=== PATIENT | female | born 1980 | race Caucasian/White ===

== ENCOUNTER 2018-01-11 14:06 | Emergency (ER) | payer OTHER ==
[2018-01-11] MEDS ORDERED: ALBUTEROL 2.5 MG/3 ML NEB SOL ONE (14:42)
[2018-01-11] MEDS ORDERED: IPRATROPIUM BROM 0.5MG/2.5ML ONE (14:42)
--- NOTE | 2018-01-11 17:03 | EDPHYS ---
Physician Documentation [facility] Unit Name: Corinna Rosario Age: 37 yrs Sex: Female : 1980 Arrival Date: 01/11/2018 Time: 14:13 Bed 13 Private MD: ED Physician Wilfrido Gates HPI: 01/11 14:32 This 37 yrs old Female presents to ER via Ambulatory with complaints of Chest kb Congestion. 14:32 The patient or guardian reports cough, that is intermittent, described as moderate, kb with no sputum. Onset: The symptoms/episode began/occurred 1 week(s) ago. Severity of symptoms: At their worst the symptoms were moderate, in the emergency department the symptoms are unchanged. Modifying factors: The symptoms are alleviated by nothing, the symptoms are aggravated by nothing. Associated signs and symptoms: The patient has no apparent associated signs or symptoms. The patient has experienced similar episodes in the past. The patient has not recently seen a physician. pt states "I have bad allergies and have been coughing for a week. At work today they sent me to medical and they told me I was wheezing really bad and needed to see a doctor." . 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 - Social history:: Smoking status: Patient/guardian denies using tobacco. ROS: 14:32 Constitutional: Negative for fever, chills, and weight loss, ENT: Negative for injury, kb pain, and discharge, Neck: Negative for injury, pain, and swelling, Cardiovascular: Negative for chest pain, palpitations, and edema, Abdomen/GI: Negative for abdominal pain, nausea, vomiting, diarrhea, and constipation, Back: Negative for injury and pain, : Negative for injury, bleeding, discharge, and swelling, MS/Extremity: Negative for injury and deformity, Skin: Negative for injury, rash, and discoloration, Neuro: Negative for headache, weakness, numbness, tingling, and seizure. 14:32 Respiratory: Positive for cough, with no reported sputum, Negative for dyspnea on exertion, hemoptysis, orthopnea, pleurisy, shortness of breath, sputum production, wheezing. Exam: 14:32 Constitutional: This is a well developed, well nourished patient who is awake, alert, kb and in no acute distress. Head/Face: Normocephalic, atraumatic. ENT: Nares patent. No nasal discharge, no septal abnormalities noted. Tympanic membranes are normal and external auditory canals are clear. Oropharynx with no redness, swelling, or masses, exudates, or evidence of obstruction, uvula midline. Mucous membranes moist. Neck: Trachea midline, no thyromegaly or masses palpated, and no cervical lymphadenopathy. Supple, full range of motion without nuchal rigidity, or vertebral point tenderness. No Meningismus. Chest/axilla: Normal chest wall appearance and motion. Nontender with no deformity. No lesions are appreciated. Cardiovascular: Regular rate and rhythm with a normal S1 and S2. No gallops, murmurs, or rubs. Normal PMI, no JVD. No pulse deficits. Respiratory: Lungs have equal breath sounds bilaterally, clear to auscultation and percussion. No rales, rhonchi or wheezes noted. No increased work of breathing, no retractions or nasal flaring. Abdomen/GI: Soft, non-tender, with normal bowel sounds. No distension or tympany. No guarding or rebound. No evidence of tenderness throughout. Skin: Warm, dry with normal turgor. Normal color with no rashes, no lesions, and no evidence of cellulitis. MS/ Extremity: Pulses equal, no cyanosis. Neurovascular intact. Full, normal range of motion. Neuro: Awake and alert, GCS 15, oriented to person, place, time, and situation. Cranial nerves II-XII grossly intact. Motor strength 5/5 in all extremities. Sensory grossly intact. Cerebellar exam normal. Normal gait. Vital Signs: 14:16 BP 98 / 72; Pulse 76; Resp 19; Temp 97.5(TE); Pulse Ox 96% on R/A; Weight 61.23 kg; la1 Height 5 ft. 0 in. (152.40 cm); 15:15 BP 108 / 61; Pulse 77; Resp 18; Pulse Ox 100% on R/A; rb1 16:14 BP 99 / 66; Pulse 75; Resp 19; Pulse Ox 99% on R/A; rb1 17:00 BP 106 / 67; Pulse 71; Resp 18; Pulse Ox 99% on R/A; rb1 14:16 Body Mass Index 26.37 (61.23 kg, 152.40 cm) la1 MDM: 14:18 Patient medically screened. kb 14:32 Data reviewed: vital signs, nurses notes. Data interpreted: Pulse oximetry: on room air kb is 96 %. Interpretation: normal. 16:28 Counseling: I had a detailed discussion with the patient and/or guardian regarding: the kb historical points, exam findings, and any diagnostic results supporting the discharge/admit diagnosis, radiology results, the need for outpatient follow up, a family practitioner, to return to the emergency department if symptoms worsen or persist or if there are any questions or concerns that arise at home. 01/11 14:22 Order name: Chest Pa And Lat (2 Views) XRAY kb Administered Medications: 14:45 Drug: DuoNeb (3:1) (2.5 mg - 0.5 mg) 3 ml Route: Nebulizer; rb1 15:09 Follow up: Response: No adverse reaction; Marked relief of symptoms rb1 15:12 Follow up: Response: No adverse reaction; Marked relief of symptoms rb1 Disposition: 18:55 Co-signature as Attending Physician, Wilfrido Gates MD. Disposition: 01/11/18 17:03 Discharged to Home. Impression: Bronchitis, not specified as acute or chronic. - Condition is Stable. - Discharge Instructions: Acute Bronchitis, [id number]. - Prescriptions for Albuterol Sulfate 90 mcg/actuation - inhale 1-2 puff by INHALATION route every 4-6 hours; 1 Inhaler. - Medication Reconciliation Form, Thank You Letter, Antibiotic Education, Prescription Opioid Use form. - Follow up: Emergency Department; When: As needed; Reason: Worsening of condition. Follow up: Private Physician; When: 2 - 3 days; Reason: Recheck today's complaints, Continuance of care, Re-evaluation by your physician. Signatures: Dispatcher [employer] Mindy Youngblood, NANCY ORDAZ-Marcos Real RN RN la1 Marisol Harry RN RN rb1 Wilfrido Gates MD MD gs Corrections: (The following items were deleted from the chart) 17:11 17:03 01/11/2018 17:03 Discharged to Home. Impression: Bronchitis, not specified as rb1 acute or chronic. Condition is Stable. Discharge Instructions: Acute Bronchitis, [id number]-Dfhg. Prescriptions for Albuterol Sulfate 90 mcg/actuation - inhale 1-2 puff by INHALATION route every 4-6 hours; 1 Inhaler. and Forms are Medication Reconciliation Form, Thank You Letter, Antibiotic Education, Prescription Opioid Use. Follow up: Emergency Department; When: As needed; Reason: Worsening of condition. Follow up: Private Physician; When: 2 - 3 days; Reason: Recheck today's complaints, Continuance of care, Re-evaluation by your physician. kb
--- NOTE | 2018-01-11 17:03 | ER ---
Nurse's Notes [facility] Name: Corinna Rosario Age: 37 yrs Sex: Female : 1980 Arrival Date: 01/11/2018 Time: 14:13 Bed 13 Private MD: Diagnosis: Bronchitis, not specified as acute or chronic Presentation: 01/11 14:15 Presenting complaint: Patient states: cough for one week, seen by on-site work medic la1 and told I was wheezing. Transition of care: patient was not received from another setting of care. Onset of symptoms was January 11, 2018. Initial Sepsis Screen: Does the patient meet any 2 criteria? No. Patient's initial sepsis screen is negative. Does the patient have a suspected source of infection? No. Patient's initial sepsis screen is negative. Care prior to arrival: None. 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 - Social history:: Smoking status: Patient/guardian denies using tobacco. Screenin:20 Abuse screen: Denies threats or abuse. Nutritional screening: No deficits noted. rb1 Tuberculosis screening: No symptoms or risk factors identified. Fall Risk None identified. Assessment: 14:20 General: Appears in no apparent distress. comfortable, Behavior is calm, cooperative, rb1 Denies fever. Neuro: Level of Consciousness is awake, alert, obeys commands, Oriented to person, place, time, situation. Cardiovascular: Capillary refill < 3 seconds is brisk in bilateral fingers. Respiratory: Reports cough that is non-productive, Airway is patent Respiratory effort is even, unlabored, Respiratory pattern is regular, symmetrical. GI: No signs and/or symptoms were reported involving the gastrointestinal system. : No signs and/or symptoms were reported regarding the genitourinary system. Derm: Skin is pink, warm \T\ dry. Musculoskeletal: Range of motion: intact in all extremities. 14:20 Pain: Denies pain. rb1 15:22 Reassessment: Patient appears in no apparent distress at this time. Patient states rb1 symptoms have improved. 16:20 Reassessment: Patient appears in no apparent distress at this time. Patient and/or rb1 family updated on plan of care and expected duration. Pain level reassessed. Patient is alert, oriented x 3, equal unlabored respirations, skin warm/dry/pink. Vital Signs: 14:16 BP 98 / 72; Pulse 76; Resp 19; Temp 97.5(TE); Pulse Ox 96% on R/A; Weight 61.23 kg; la1 Height 5 ft. 0 in. (152.40 cm); 15:15 BP 108 / 61; Pulse 77; Resp 18; Pulse Ox 100% on R/A; rb1 16:14 BP 99 / 66; Pulse 75; Resp 19; Pulse Ox 99% on R/A; rb1 17:00 BP 106 / 67; Pulse 71; Resp 18; Pulse Ox 99% on R/A; rb1 14:16 Body Mass Index 26.37 (61.23 kg, 152.40 cm) la1 ED Course: 14:13 Patient arrived in ED. sb2 14:15 Triage completed. la1 14:16 [facility]C [facility] kb 14:16 Wilfrido aGtes MD is Attending Physician. kb 14:16 Arm band placed on left wrist. la1 14:20 Patient has correct armband on for positive identification. Bed in low position. Call rb1 light in reach. Side rails up X 1. Pulse ox on. NIBP on. 14:21 Marisol Harry, RN is Primary Nurse. rb1 16:09 X-ray completed. Patient tolerated procedure well. bb2 16:10 Chest Pa And Lat (2 Views) XRAY In Process Unspecified. EDMS 17:11 No provider procedures requiring assistance completed. Patient did not have IV access rb1 during this emergency room visit. Administered Medications: 14:45 Drug: DuoNeb (3:1) (2.5 mg - 0.5 mg) 3 ml Route: Nebulizer; rb1 15:09 Follow up: Response: No adverse reaction; Marked relief of symptoms rb1 15:12 Follow up: Response: No adverse reaction; Marked relief of symptoms rb1 Outcome: 17:03 Discharge ordered by . kb 17:11 Patient left the ED. rb1 17:11 Discharged to home ambulatory. rb1 17:11 Condition: stable 17:11 Discharge instructions given to patient, Instructed on discharge instructions, follow up and referral plans. medication usage, Demonstrated understanding of instructions, follow-up care, medications, Prescriptions given X 1. Signatures: Dispatcher [employer] EDMindy Patricio, INTERLOCKING TOWER OPERATOR-C INTERLOCKING TOWER OPERATOR-Marcos Real RN RN la1 Marisol Harry RN RN rb1 Soumya Astudillo2 Sonam Phan2
[2018-01-11 17:20] VITALS: TEMP 97.5
[2018-01-11 17:22] VITALS: O2SAT 99
[2018-01-11 17:23] VITALS: BP 106/67
--- NOTE | 2018-01-11 18:30 | RAD REPORT ---
EXAM DESCRIPTION: RAD - Chest Pa And Lat (2 Views) - 01/11/2018 4:11 pm CLINICAL HISTORY: Persistent cough and congestion COMPARISON: None. TECHNIQUE: PA and lateral views of the chest were obtained. FINDINGS: The lungs are clear. Heart size is normal and central vasculature is within normal limit s. No pleural effusion or pneumothorax seen. No acute bony finding noted. No aortic abnormality. IMPRESSION: No acute cardiopulmonary process.
== END 2018-01-11 17:11 | disposition home or self-care (01) ==
LOC: ER 14:06
DX: J40 Bronchitis, not specified as acute or chronic (principal)
CPT/HCPCS: 71046; 94640; 99284

== ENCOUNTER 2018-06-14 02:17 | Emergency (ER) | payer OTHER, SELFPAY ==
--- OUTSIDE RECORDS SUMMARY | 2018-06-14 02:20 | XMS REPORT | Clinical Summary ---
:1980 Author Organization [facility] Address [address] [place] [address] Phone Care Team Providers Name Role Phone Unavailable Primary Care Provider Unavailable Allergies No Known Allergies Current Medications Prescription Sig. Disp. Refills Start Date End Date Status loratadine (CLARITIN) Take 10 mg by Active 10 mg tablet mouth daily. acetaminophen-codeine Take 1 tablet by 30 tablet 0 06/13/2018 06/23/2018 Active (TYLENOL #3) 300-30 mouth every 6 mg per tablet (six) hours as needed for up to 10 days. Max Daily Amount: 4 tablets docusate sodium Take 1 capsule 20 capsule 0 06/13/2018 06/23/2018 Active (COLACE) 100 MG (100 mg total) capsule by mouth 2 (two) times daily for 10 days. ibuprofen Take 1 tablet 40 tablet 0 06/13/2018 06/23/2018 Active (ADVIL,MOTRIN) 600 MG (600 mg total) tablet by mouth every 6 (six) hours for 10 days. Active Problems Problem Noted Date Cancer of exocervix (HCC) 2018 Encounters Date Type Specialty Care Team Description 2018 - Hospital Encounter General Internal Kyle Vanegas 06/13/2018 Medicine MD Tony 2018 Procedure Pass 2018 Surgery Kyle Vanegas SALPINGECTOMY MD Tony 06/09/2018 Anesthesia Event Han Norton MD 05/29/2018 Hospital Encounter Pre-Admission Kyle Vanegas Testing MD Tony after 06/13/2017 Social History Tobacco Use Types Packs/Day Years Used Date Never Smoker Smokeless Tobacco: Never Used Alcohol Use Drinks/Week oz/Week Comments No Sex Assigned at Date Recorded Not on file Last Filed Vital Signs Vital Sign Reading Time Taken Blood Pressure 98/57 06/13/2018 8:01 AM CDT Pulse 78 06/13/2018 8:01 AM CDT Temperature 36.7 C (98.1 F) 06/13/2018 8:01 AM CDT Respiratory Rate 16 06/13/2018 8:01 AM CDT Oxygen Saturation 97% 06/13/2018 8:01 AM CDT Inhaled Oxygen Concentration - - Weight 69 kg (152 lb 3.2 oz) 2018 5:52 AM CDT Height 152.4 cm (5') 2018 5:52 AM CDT Body Mass Index 29.72 2018 5:52 AM CDT Plan of Treatment Not on file Implants Implanted Type Area Urologist Device Expiration Model / Identifier Date Serial / Lot Memb Seprafilm Mariana Goodrich 5x6 4301-02 - Sn/A Cement/F Abdomen GENZYME ZIGGY : 02/23/2020 4301-02 / Implanted: Qty: 1 on 2018 by Kyle Vanegas MD iller/Ad BIO-SURG N/A / hesive [id number] Flseal Vhsd Full Strlprep 10ml [id number] - Sn/A Cement/F Abdomen LEMONS: BIOSCI 11/03/2019 [id number] / Implanted: Qty: 1 on 2018 by Kyle Vanegas MD iller/Ad N/A / hesive [id number] Memb Seprafilm Mariana Goodrich 5x6 4301-02 - Sn/A Cement/F Abdomen GENZYME ZIGGY : 01/24/2020 4301-02 / Implanted: Qty: 1 on 2018 by Kyle Vanegas MD iller/Ad BIO-SURG N/A / hesive [id number] Procedures Procedure Name Priority Date/Time Associated Diagnosis Comments DISSECTION,LYMPH NODE 2018 7:30 AM Cancer of exocervix PELVIC CDT (HCC) Case Notes 4 HRS PER KENIA AND BRYANNA SALPINGECTOMY 2018 7:30 AM CDT Cancer of exocervix (HCC) Case Notes 4 HRS PER KENIA AND BRYANNA after 06/13/2017 Results CBC with platelet count + automated diff (06/12/2018 6:58 AM)Only the most recent of3 resultswithin the time period is included. Component Value Ref Range WBC 8.8 3.5 - 10.5 K/L RBC 3.61 (L) 3.93 - 5.22 M/L Hemoglobin 10.3 (L) 11.2 - 15.7 GM/DL Hematocrit 30.8 (L) 34.1 - 44.9 % MCV 85.3 79.4 - 94.8 fL MCH 28.5 25.6 - 32.2 pg MCHC 33.4 32.2 - 35.5 GM/DL RDW 14.5 (H) 11.7 - 14.4 % Platelets 212 150 - 450 K/CU MM MPV 10.2 9.4 - 12.3 fL nRBC 0 0 - 0 /100 WBC % Neutros 75 % % Lymphs 15 % % Monos 9 % % Eos 1 % % Baso 1 % # Neutros 6.60 (H) 1.56 - 6.13 K/L # Lymphs 1.30 1.18 - 3.74 K/L # Monos 0.76 (H) 0.24 - 0.36 K/L # Eos 0.11 0.04 - 0.36 K/L # Baso 0.04 0.01 - 0.08 K/L Immature Granulocytes-Relative 0 0 - 1 % Specimen Performing Laboratory Blood - Arm, [address] [address] CBC with platelet count + automated diff (06/12/2018 6:58 AM)Only the most recent of3 resultswithin the time period is included. Specimen Performing Laboratory Blood Narrative The following orders were created for panel order CBC with platelet count + automated diff. Procedure Abnormality Status --------- ------ CBC with platelet count ...[[id number]]AbnormalFinal result Please view results for these tests on the individual orders. Basic Metabolic Panel (06/11/2018 4:23 AM)Only the most recent of2 resultswithin the time period is included. Component Value Ref Range Sodium 134 (L) 136 - 145 meq/L Potassium 4.3 3.5 - 5.1 meq/L Chloride 103 98 - 107 meq/L CO2 24 22 - 29 meq/L BUN 10 7 - 21 mg/dL Creatinine 0.73 0.57 - 1.25 mg/dL Glucose 127 (H) 70 - 105 mg/dL Calcium 8.3 (L) 8.4 - 10.2 mg/dL EGFR 90Comment: ESTIMATED GFR IS NOT ACCURATE mL/min/1.73 sq m CREATININE CLEARANCE IN PREDICTING GLOMERULAR FILTRATION RATE. ESTIMATED GFR IS NOT APPLICABLE FOR DIALYSIS PATIENTS. Specimen Performing Laboratory Blood - Arm, Right [address] [address] POCT , urine (2018 6:43 AM) Component Value Ref Range Test Urine, POC Negative Control line present?, POC Yes Background clear?, POC Yes UPT Cassette Lot #, POC [id number] UPT Cassette Expiration Date, POC 12/24/2019 TRANSFUSION SERVICE REPORT - SCAN (05/30/2018 6:03 PM) Screen, urine ( 05/29/2018 12:47 PM) Component Value Ref Range Preg Test, Ur Negative Specimen Performing Laboratory Urine [address] [address] Type and screen, automated (05/29/2018 12:46 PM) Component Value Ref Range ABO/RH AUTOMATED (BEAKER) O POSITIVE Ab Scrn NEGATIVE Specimen Performing Laboratory Blood [address] [address] after 06/13/2017
--- OUTSIDE RECORDS SUMMARY | 2018-06-14 02:20 | XMS REPORT ---
:1980 Author Organization [facility] Address [address] [place] [address] [address] [place] [address] Care Team Providers Name Role Phone JODI ANAYA Unavailable Unavailable Problems This patient has no known problems. Allergies, Adverse Reactions, Alerts This patient has no known allergies or adverse reactions. Medications This patient has no known medications. Results Test Description Test Time Test Comments Text Results Atomic Results Result Comments CBC W/PLT COUNT & AUTO DIFFERENTIAL 2018-06-12 07:09:00 Test Item Value Reference Range Comments WHITE BLOOD CELL COUNT (BEAKER) (test pxtf=560) 8.8 K/ L 3.5-10.5 RED BLOOD CELL COUNT (BEAKER) (test xhql=951) 3.61 M/ L 3.93-5.22 HEMOGLOBIN (BEAKER) (test bqzr=157) 10.3 GM/DL 11.2-15.7 HEMATOCRIT (BEAKER) (test juqm=878) 30.8 % 34.1-44.9 MEAN CORPUSCULAR VOLUME (BEAKER) (test tyon=544) 85.3 fL 79.4-94.8 MEAN CORPUSCULAR HEMOGLOBIN (BEAKER) (test nffm=322) 28.5 pg 25.6-32.2 MEAN CORPUSCULAR HEMOGLOBIN CONC (BEAKER) (test hpvh=386) 33.4 GM/DL 32.2- 35.5 RED CELL DISTRIBUTION WIDTH (BEAKER) (test hbzc=325) 14.5 % 11.7-14.4 PLATELET COUNT (BEAKER) (test pqyd=769) 212 K/CU MM 150-450 MEAN PLATELET VOLUME (BEAKER) (test qdnf=050) 10.2 fL 9.4-12.3 NUCLEATED RED BLOOD CELLS (BEAKER) (test ixps=098) 0 /100 WBC 0-0 NEUTROPHILS RELATIVE PERCENT (BEAKER) (test uiuu=939) 75 % LYMPHOCYTES RELATIVE PERCENT (BEAKER) (test jqqe=779) 15 % MONOCYTES RELATIVE PERCENT (BEAKER) (test zkbh=741) 9 % EOSINOPHILS RELATIVE PERCENT (BEAKER) (test wqht=815) 1 % BASOPHILS RELATIVE PERCENT (BEAKER) (test lchm=388) 1 % NEUTROPHILS ABSOLUTE COUNT (BEAKER) (test dsjh=820) 6.60 K/ L 1.56-6.13 LYMPHOCYTES ABSOLUTE COUNT (BEAKER) (test xmmr=130) 1.30 K/ L 1.18-3.74 MONOCYTES ABSOLUTE COUNT (BEAKER) (test lllf=555) 0.76 K/ L 0.24-0.36 EOSINOPHILS ABSOLUTE COUNT (BEAKER) (test jcns=095) 0.11 K/ L 0.04-0.36 BASOPHILS ABSOLUTE COUNT (BEAKER) (test bsfm=020) 0.04 K/ L 0.01-0.08 IMMATURE GRANULOCYTES-RELATIVE PERCENT (BEAKER) (test 0 % 0-1 pokj=1177) BASIC METABOLIC [id number] 05:09:00 Test Item Value Reference Range Comments SODIUM (BEAKER) (test 134 meq/L 136-145 tzso=064) POTASSIUM (BEAKER) (test 4.3 meq/L 3.5-5.1 fjqp=828) CHLORIDE (BEAKER) (test 103 meq/L 98-107 cxic=758) CO2 (BEAKER) (test 24 meq/L 22-29 ianr=527) BLOOD UREA NITROGEN 10 mg/dL 7-21 (BEAKER) (test hiqy=221) CREATININE (BEAKER) (test 0.73 mg/dL 0.57-1.25 pele=948) GLUCOSE RANDOM (BEAKER) 127 mg/dL 70-105 (test zxta=176) CALCIUM (BEAKER) (test 8.3 mg/dL 8.4-10.2 krql=330) EGFR (BEAKER) (test 90 mL/min/1.73 sq m ESTIMATED GFR IS NOT sptc=9909) ACCURATE CREATININE CLEARANCE IN PREDICTING GLOMERULAR FILTRATION RATE. ESTIMATED GFR IS NOT APPLICABLE FOR DIALYSIS PATIENTS. CBC W/PLT COUNT & AUTO [id number] 04:57:00 Test Item Value Reference Range Comments WHITE BLOOD CELL COUNT (BEAKER) (test ucwa=890) 13.4 K/ L 3.5-10.5 RED BLOOD CELL COUNT (BEAKER) (test vijg=330) 4.27 M/ L 3.93-5.22 HEMOGLOBIN (BEAKER) (test vsts=254) 11.8 GM/DL 11.2-15.7 HEMATOCRIT (BEAKER) (test ntit=094) 36.9 % 34.1-44.9 MEAN CORPUSCULAR VOLUME (BEAKER) (test jzis=564) 86.4 fL 79.4-94.8 MEAN CORPUSCULAR HEMOGLOBIN (BEAKER) (test 27.6 pg 25.6-32.2 jutw=917) MEAN CORPUSCULAR HEMOGLOBIN CONC (BEAKER) (test 32.0 GM/DL 32.2-35.5 zsse=426) RED CELL DISTRIBUTION WIDTH (BEAKER) (test 14.5 % 11.7-14.4 ytlh=789) PLATELET COUNT (BEAKER) (test lfdl=553) 277 K/CU MM 150-450 MEAN PLATELET VOLUME (BEAKER) (test ntic=099) 10.2 fL 9.4-12.3 NUCLEATED RED BLOOD CELLS (BEAKER) (test 0 /100 WBC 0-0 xhdt=020) NEUTROPHILS RELATIVE PERCENT (BEAKER) (test 79 % ules=135) LYMPHOCYTES RELATIVE PERCENT (BEAKER) (test 13 % tvzd=504) MONOCYTES RELATIVE PERCENT (BEAKER) (test 8 % zexg=568) EOSINOPHILS RELATIVE PERCENT (BEAKER) (test 0 % ipeo=470) BASOPHILS RELATIVE PERCENT (BEAKER) (test 0 % mgew=632) NEUTROPHILS ABSOLUTE COUNT (BEAKER) (test 10.56 K/ L 1.56-6.13 scae=265) LYMPHOCYTES ABSOLUTE COUNT (BEAKER) (test 1.67 K/ L 1.18-3.74 rfzj=264) MONOCYTES ABSOLUTE COUNT (BEAKER) (test 1.05 K/ L 0.24-0.36 qhom=729) EOSINOPHILS ABSOLUTE COUNT (BEAKER) (test 0.02 K/ L 0.04-0.36 bbfb=766) BASOPHILS ABSOLUTE COUNT (BEAKER) (test 0.05 K/ L 0.01-0.08 owty=923) IMMATURE GRANULOCYTES-RELATIVE PERCENT (BEAKER) 0 % 0-1 (test qjti=9369) BASIC METABOLIC [id number] 13:20:00 Test Item Value Reference Range Comments SODIUM (BEAKER) (test 142 meq/L 136-145 ctiy=495) POTASSIUM (BEAKER) (test 3.5 meq/L 3.5-5.1 tjha=450) CHLORIDE (BEAKER) (test 107 meq/L 98-107 grih=933) CO2 (BEAKER) (test 31 meq/L 22-29 ufrs=669) BLOOD UREA NITROGEN 10 mg/dL 7-21 (BEAKER) (test wjlt=767) CREATININE (BEAKER) (test 0.81 mg/dL 0.57-1.25 jjhy=384) GLUCOSE RANDOM (BEAKER) 96 mg/dL 70-105 (test fcoi=091) CALCIUM (BEAKER) (test 9.4 mg/dL 8.4-10.2 czpe=685) EGFR (BEAKER) (test 80 mL/min/1.73 sq m ESTIMATED GFR IS NOT rkpb=3275) ACCURATE CREATININE CLEARANCE IN PREDICTING GLOMERULAR FILTRATION RATE. ESTIMATED GFR IS NOT APPLICABLE FOR DIALYSIS PATIENTS. SCREEN, [id number] 13:17:00 Test Item Value Reference Range Comments TEST URINE (BEAKER) (test oenx=772) Negative CBC W/PLT COUNT & AUTO [id number] 13:06:00 Test Item Value Reference Range Comments WHITE BLOOD CELL COUNT (BEAKER) (test cxke=204) 7.5 K/ L 3.5-10.5 RED BLOOD CELL COUNT (BEAKER) (test yyrk=714) 4.45 M/ L 3.93-5.22 HEMOGLOBIN (BEAKER) (test pwfj=168) 12.3 GM/DL 11.2-15.7 HEMATOCRIT (BEAKER) (test idoi=547) 37.5 % 34.1-44.9 MEAN CORPUSCULAR VOLUME (BEAKER) (test sscs=383) 84.3 fL 79.4-94.8 MEAN CORPUSCULAR HEMOGLOBIN (BEAKER) (test 27.6 pg 25.6-32.2 jexr=873) MEAN CORPUSCULAR HEMOGLOBIN CONC (BEAKER) (test 32.8 GM/DL 32.2-35.5 qpqb=799) RED CELL DISTRIBUTION WIDTH (BEAKER) (test 14.1 % 11.7-14.4 oqus=611) PLATELET COUNT (BEAKER) (test wffc=365) 283 K/CU MM 150-450 MEAN PLATELET VOLUME (BEAKER) (test piym=427) 10.0 fL 9.4-12.3 NUCLEATED RED BLOOD CELLS (BEAKER) (test 0 /100 WBC 0-0 fskm=233) NEUTROPHILS RELATIVE PERCENT (BEAKER) (test 61 % scca=196) LYMPHOCYTES RELATIVE PERCENT (BEAKER) (test 25 % vzmd=502) MONOCYTES RELATIVE PERCENT (BEAKER) (test 10 % efqr=476) EOSINOPHILS RELATIVE PERCENT (BEAKER) (test 4 % zbot=415) BASOPHILS RELATIVE PERCENT (BEAKER) (test 1 % qjsc=531) NEUTROPHILS ABSOLUTE COUNT (BEAKER) (test 4.56 K/ L 1.56-6.13 cdpt=247) LYMPHOCYTES ABSOLUTE COUNT (BEAKER) (test 1.84 K/ L 1.18-3.74 ysmn=491) MONOCYTES ABSOLUTE COUNT (BEAKER) (test 0.72 K/ L 0.24-0.36 zgfh=945) EOSINOPHILS ABSOLUTE COUNT (BEAKER) (test 0.32 K/ L 0.04-0.36 unno=668) BASOPHILS ABSOLUTE COUNT (BEAKER) (test 0.06 K/ L 0.01-0.08 zsku=312) IMMATURE GRANULOCYTES-RELATIVE PERCENT (BEAKER) 0 % 0-1 (test zoin=5008)
[2018-06-14] MEDS ORDERED: NA CHLORIDE 0.9% 500 ML ONE (02:54)
[2018-06-14] MEDS ORDERED: ONDANSETRON 4 MG/2 ML VIAL ONE (02:55)
[2018-06-14] MEDS ORDERED: FENTANYL CITR 100 MCG/2 ML ONE ×2 (02:55→05:59)
[2018-06-14 03:36] LABS: Absolute Monocytes 0.6 K/uL (0.1-1.3); Absolute Neutrophil 4.1 K/uL (1.8-8.0); Basophils % 0.7 % (0-1.3); Eosinophils % 4.3 % (0-4.4); Hematocrit 32.3 % (36.0-45.0); Lymphocytes % 16.4 % (15.3-44.8); MCH 28.1 pg (27.0-35.0); MPV 8.6 fL (7.6-11.3); Monocytes % 9.8 % (3.3-12.3)
[2018-06-14 03:48] LABS: ALT/SGPT 22 U/L (12-78); AST/SGOT 24 U/L (15-37); Albumin 2.6 g/dL (3.4-5.0); Alkaline Phosphatase 68 U/L (45-117); BUN Blood Urea Nitrogen 6 mg/dL (7-18); Bicarbonate 30 mmol/L (21-32); Bilirubin Direct 0.1 mg/dL (0-0.2); Bilirubin Total 0.4 mg/dL (0.2-1.0); Glucose Level 98 mg/dL (74-106); Lipase 109 U/L (73-393); Potassium 3.4 mmol/L (3.5-5.1); Protein, Total 6.4 g/dL (6.4-8.2); Sodium Level 143 mmol/L (136-145)
[2018-06-14 04:03] LABS: Urine Blood 3+ (NEG); Urine Glucose NEGATIVE (NEG); Urine Protein NEGATIVE (NEG); Urine Specific Gravity 1.015 (1.005-1.030); Urine pH 7.5 (5.0-7.0)
[2018-06-14] MEDS ORDERED: POTASSIUM 25 MEQ EFFERV TAB ONE (04:09)
--- NOTE | 2018-06-14 05:23 | ER ---
Nurse's Notes [facility] Name: Corinna Rosario Age: 38 yrs Sex: Female : 1980 Arrival Date: 06/14/2018 Time: 02:22 Bed 6 Private MD: Diagnosis: Abdominal tenderness;Hypokalemia;Anemia, unspecified;Urinary tract infection, site not specified Presentation: 06/14 02:22 Presenting complaint: EMS states: Tone up for severe lower abdominal pain. Patient had ao surgery on the at [facility] due to cervical cancer where they remove fallopian tubes. Patient was trying to get up tonight and felt a pop and started having lower abdominal pain. EMS administered Fentanyl 100 Mcg on route. Transition of care: patient was not received from another setting of care. Onset of symptoms was June 14, 2018 at 01:30. Risk Assessment: Do you want to hurt yourself or someone else? Patient reports no desire to harm self or others. Initial Sepsis Screen: Does the patient meet any 2 criteria? No. Patient's initial sepsis screen is negative. Does the patient have a suspected source of infection? No. Patient's initial sepsis screen is negative. Care prior to arrival: Medication(s) given: Fentanyl 100Mcg IV initiated. 20 GA, in the right antecubital area. 02:22 Method Of Arrival: EMS: [facility] ao 02:22 Acuity: EBONI 3 ao Triage Assessment: 02:30 General: Appears. ao Historical: - Allergies: 02:30 morphine; ao - Home Meds: 02:30 acetaminophen-codeine 300-15 mg Oral tab 1 tab every 6 hours [Active]; Ibuprofen Oral ao [Active]; - PMHx: 02:30 Cervical cancer; ao - Immunization history:: Adult Immunizations up to date. - Social history:: Smoking status: Patient/guardian denies using tobacco, Patient/guardian denies using alcohol, street drugs. - Ebola Screening: : Patient negative for fever greater than or equal to 101.5 degrees Fahrenheit, and additional compatible Ebola Virus Disease symptoms Patient denies exposure to infectious person Patient denies travel to an Ebola-affected area in the 21 days before illness onset. - Family history:: not pertinent. Screenin:30 Abuse screen: Denies threats or abuse. Denies injuries from another. Nutritional ao screening: No deficits noted. Tuberculosis screening: No symptoms or risk factors identified. Fall Risk None identified. Assessment: 02:31 General: Appears in no apparent distress. comfortable, Behavior is calm, cooperative, ao appropriate for age. Pain: Complains of pain in abdomen Pain does not radiate. Neuro: Level of Consciousness is awake, alert, obeys commands, Oriented to person, place, time, situation, Appropriate for age Moves all extremities. Full function Speech is normal, Facial symmetry appears normal. Cardiovascular: Heart tones S1 S2 Capillary refill < 3 seconds Patient's skin is warm and dry. Respiratory: Airway is patent Respiratory effort is even, unlabored, Respiratory pattern is regular, symmetrical. GI: Abdomen is non-distended, Bowel sounds present X 4 quads. Abd is soft and non tender X 4 quads. : No signs and/or symptoms were reported regarding the genitourinary system. EENT: No signs and/or symptoms were reported regarding the EENT system. Derm: Skin is intact, Skin is pink, warm \T\ dry. normal, Skin temperature is warm. Musculoskeletal: Range of motion: intact in all extremities. 03:37 Reassessment: Patient appears in no apparent distress at this time. Patient and/or ao family updated on plan of care and expected duration. Pain level reassessed. Received an order from Dr Mendez to medicate patient with fentanyl 50 mcg after given urine saple. 04:41 Reassessment: Patient appears in no apparent distress at this time. Patient and/or ao family updated on plan of care and expected duration. Pain level reassessed. Patient is alert, oriented x 3, equal unlabored respirations, skin warm/dry/pink. pt informed of wait for CT results. Vital Signs: 02:26 BP 107 / 75; Pulse 97; Resp 16; Temp 98.5(O); Pulse Ox 98% ; Weight 70.31 kg (R); ao Height 5 ft. 5 in. (165.10 cm) (R); Pain 0/10; 03:37 BP 93 / 56; Pulse 67; Resp 16; Pulse Ox 98% on R/A; Pain 0/10; ao 04:41 BP 104 / 64; Pulse 92; Resp 18; Pulse Ox 100% on R/A; ao 05:12 BP 116 / 79; Pulse 79; Resp 16; Pulse Ox 100% on R/A; ak1 02:26 Body Mass Index 25.79 (70.31 kg, 165.10 cm) ao 05:12 pt placed on bed benavidez ak1 ED Course: 02:22 Patient arrived in ED. ao 02:25 Óscar Mendez MD is Attending Physician. mitchel 02:26 Triage completed. ao 02:30 Arm band placed on right wrist. Patient placed in an exam room, on a stretcher, on ao cardiac monitor technician, on pulse oximetry, Patient notified of wait time. 02:32 Patient has correct armband on for positive identification. Pulse ox on. NIBP on. ao 02:45 Es Blackwood, RN is Primary Nurse. ea 03:45 Radiology exam delayed due to lab results not completed at this time. (BUN/Creatinine). nj 04:[address] via stretcher. kw1 04:12 CT Abd/Pelvis - W/Contrast In Process Unspecified. EDMS 04:14 CT completed. Patient tolerated procedure well. Patient moved back from CT. kw1 06:03 No provider procedures requiring assistance completed. IV discontinued, intact, ak1 bleeding controlled, No redness/swelling at site. Pressure dressing applied, 20g left AC and 20g right forearm removed prior to discharge. Administered Medications: 03:00 Drug: NS 0.9% 500 ml Route: IV; Rate: bolus; Site: left antecubital; ea 05:53 Follow up: IV Status: Completed infusion ak1 03:00 Drug: fentaNYL (PF) 25 mcg Route: IVP; Site: left antecubital; ea 05:39 Follow up: Response: No adverse reaction ak1 03:00 Drug: Zofran 4 mg Route: IVP; Site: left antecubital; ea 05:39 Follow up: Response: No adverse reaction ak1 03:39 Drug: fentaNYL (PF) 50 mcg Route: IVP; Site: right antecubital; ea 05:39 Follow up: Response: No adverse reaction ak1 04:41 Drug: Potassium Effervescent Tablet 25 mEq Route: PO; ao 05:38 Follow up: Response: No adverse reaction ak1 05:53 Drug: Rocephin - (cefTRIAXone) 1 grams Route: IVPB; Infused Over: 30 mins; Site: right ak1 forearm; 05:53 Follow up: IV Status: Completed infusion ak1 05:53 Drug: fentaNYL (PF) 25 mcg Route: IVP; Site: right forearm; ak1 06:03 Follow up: Response: No adverse reaction ak1 Outcome: 05:23 Discharge ordered by . mitchel 06:03 Discharged to home via wheelchair, with family. ak1 06:03 Condition: good 06:03 Discharge instructions given to patient, family, Instructed on discharge instructions, follow up and referral plans. no drinking with medication, no driving heavy equipment, medication usage, Demonstrated understanding of instructions, follow-up care, medications, Prescriptions given X 3. 06:04 Patient left the ED. ak1 Signatures: Dispatcher [employer] EDMS Óscra Mendez MD MD cha Krenek, Amber RN RN ak1 Angel Espinoza RN Bar Lawrence Elena, RN RN ea Wilhelm, Kimberly kw1
--- NOTE | 2018-06-14 05:24 | EDPHYS ---
Physician Documentation [facility] Name: Corinna Rosario Age: 38 yrs Sex: Female : 1980 Arrival Date: 06/14/2018 Time: 02:22 Bed 6 Private MD: ED Physician Óscar Mendez HPI: 06/14 02:39 This 38 yrs old Female presents to ER via EMS with complaints of Abdominal mitchel Pain. 02:39 The patient presents with abdominal pain in the lower abdomen, abdominal distention in mitchel the upper abdomen, in the lower abdomen. Onset: The symptoms/episode began/occurred just prior to arrival. The symptoms do not radiate. Associated signs and symptoms: none. The symptoms are described as crampy, sharp. Modifying factors: The symptoms are alleviated by remaining still, the symptoms are aggravated by movement, pressure, touching the area, walking. Severity of pain: At its worst the pain was moderate severe in the emergency department the pain has improved moderately. The patient has not experienced similar symptoms in the past. Historical: - Allergies: 02:30 morphine; ao - Home Meds: 02:30 acetaminophen-codeine 300-15 mg Oral tab 1 tab every 6 hours [Active]; Ibuprofen Oral ao [Active]; - PMHx: 02:30 Cervical cancer; ao - Immunization history:: Adult Immunizations up to date. - Social history:: Smoking status: Patient/guardian denies using tobacco, Patient/guardian denies using alcohol, street drugs. - Ebola Screening: : Patient negative for fever greater than or equal to 101.5 degrees Fahrenheit, and additional compatible Ebola Virus Disease symptoms Patient denies exposure to infectious person Patient denies travel to an Ebola-affected area in the 21 days before illness onset. - Family history:: not pertinent. ROS: 02:39 Constitutional: Negative for fever, chills, and weight loss, Eyes: Negative for injury, mitchel pain, redness, and discharge, ENT: Negative for injury, pain, and discharge, Neck: Negative for injury, pain, and swelling, Cardiovascular: Negative for chest pain, palpitations, and edema, Respiratory: Negative for shortness of breath, cough, wheezing, and pleuritic chest pain, Back: Negative for injury and pain, : Negative for injury, bleeding, discharge, and swelling, MS/Extremity: Negative for injury and deformity, Skin: Negative for injury, rash, and discoloration, Neuro: Negative for headache, weakness, numbness, tingling, and seizure, Psych: Negative for depression, anxiety, suicide ideation, homicidal ideation, and hallucinations, Allergy/Immunology: Negative for hives, rash, and allergies, Endocrine: Negative for neck swelling, polydipsia, polyuria, polyphagia, and marked weight changes, Hematologic/Lymphatic: Negative for swollen nodes, abnormal bleeding, and unusual bruising. 02:39 Abdomen/GI: Positive for abdominal pain, of the right lower quadrant and left lower quadrant. Exam: 02:39 Constitutional: This is a well developed, well nourished patient who is awake, alert, mitchel and in no acute distress. Head/Face: Normocephalic, atraumatic. Eyes: Pupils equal round and reactive to light, extra-ocular motions intact. Lids and lashes normal. Conjunctiva and sclera are non-icteric and not injected. Cornea within normal limits. Periorbital areas with no swelling, redness, or edema. ENT: Nares patent. No nasal discharge, no septal abnormalities noted. Tympanic membranes are normal and external auditory canals are clear. Oropharynx with no redness, swelling, or masses, exudates, or evidence of obstruction, uvula midline. Mucous membranes moist. Neck: Trachea midline, no thyromegaly or masses palpated, and no cervical lymphadenopathy. Supple, full range of motion without nuchal rigidity, or vertebral point tenderness. No Meningismus. Chest/axilla: Normal chest wall appearance and motion. Nontender with no deformity. No lesions are appreciated. Cardiovascular: Regular rate and rhythm with a normal S1 and S2. No gallops, murmurs, or rubs. Normal PMI, no JVD. No pulse deficits. Respiratory: Lungs have equal breath sounds bilaterally, clear to auscultation and percussion. No rales, rhonchi or wheezes noted. No increased work of breathing, no retractions or nasal flaring. Back: No spinal tenderness. No costovertebral tenderness. Full range of motion. Female : Normal external genitalia. Skin: Warm, dry with normal turgor. Normal color with no rashes, no lesions, and no evidence of cellulitis. MS/ Extremity: Pulses equal, no cyanosis. Neurovascular intact. Full, normal range of motion. Neuro: Awake and alert, GCS 15, oriented to person, place, time, and situation. Cranial nerves II-XII grossly intact. Motor strength 5/5 in all extremities. Sensory grossly intact. Cerebellar exam normal. Normal gait. Psych: Awake, alert, with orientation to person, place and time. Behavior, mood, and affect are within normal limits. 02:39 Abdomen/GI: Inspection: distension, Bowel sounds: normal, Palpation: mild abdominal tenderness, moderate abdominal tenderness, in the left lower quadrant, Liver: no appreciated palpable abnormalities, Hernia: not appreciated. Vital Signs: 02:26 BP 107 / 75; Pulse 97; Resp 16; Temp 98.5(O); Pulse Ox 98% ; Weight 70.31 kg (R); ao Height 5 ft. 5 in. (165.10 cm) (R); Pain 0/10; 03:37 BP 93 / 56; Pulse 67; Resp 16; Pulse Ox 98% on R/A; Pain 0/10; ao 04:41 BP 104 / 64; Pulse 92; Resp 18; Pulse Ox 100% on R/A; ao 05:12 BP 116 / 79; Pulse 79; Resp 16; Pulse Ox 100% on R/A; ak1 02:26 Body Mass Index 25.79 (70.31 kg, 165.10 cm) ao 05:12 pt placed on bed benavidez ak1 MDM: 02:[address] [facility] 02:42 Data reviewed: vital signs, nurses notes, lab test result(s), radiologic studies. [facility] 06/14 02:36 Order name: Basic Metabolic Panel; Complete Time: 03:54 [facility] 06/14 02:36 Order name: CBC with Diff; Complete Time: 03:54 [facility] 06/14 02:36 Order name: Creatinine for Radiology; Complete Time: 03:54 [facility] 06/14 02:36 Order name: Hepatic Function; Complete Time: 03:54 [facility] 06/14 02:36 Order name: Lipase; Complete Time: 03:54 [facility] 06/14 03:39 Order name: Urine Dipstick--Ancillary (enter results); Complete Time: 05:05 [facility] 06/14 02:36 Order name: CT Abd/Pelvis - W/Contrast [facility] 06/14 03:39 Order name: Urine --Ancillary (enter results); Complete Time: 05:05 [facility] 06/14 02:36 Order name: IV Saline Lock; Complete Time: 02:45 [facility] 06/14 02:36 Order name: Labs collected and sent; Complete Time: 03:16 [facility] 06/14 02:36 Order name: Urine Dipstick-Ancillary (obtain specimen); Complete Time: 03:40 [facility] 06/14 02:36 Order name: Urine Test (obtain specimen); Complete Time: 03:40 [facility] Administered Medications: 03:00 Drug: NS 0.9% 500 ml Route: IV; Rate: bolus; Site: left antecubital; ea 05:53 Follow up: IV Status: Completed infusion ak1 03:00 Drug: fentaNYL (PF) 25 mcg Route: IVP; Site: left antecubital; ea 05:39 Follow up: Response: No adverse reaction ak1 03:00 Drug: Zofran 4 mg Route: IVP; Site: left antecubital; ea 05:39 Follow up: Response: No adverse reaction ak1 03:39 Drug: fentaNYL (PF) 50 mcg Route: IVP; Site: right antecubital; ea 05:39 Follow up: Response: No adverse reaction ak1 04:41 Drug: Potassium Effervescent Tablet 25 mEq Route: PO; ao 05:38 Follow up: Response: No adverse reaction ak1 05:53 Drug: Rocephin - (cefTRIAXone) 1 grams Route: IVPB; Infused Over: 30 mins; Site: right ak1 forearm; 05:53 Follow up: IV Status: Completed infusion ak1 05:53 Drug: fentaNYL (PF) 25 mcg Route: IVP; Site: right forearm; ak1 06:03 Follow up: Response: No adverse reaction ak1 Disposition: 06/14/18 05:23 Discharged to Home. Impression: Abdominal tenderness, Hypokalemia, Anemia, unspecified, Urinary tract infection, site not specified. - Condition is Stable. - Discharge Instructions: Abdominal Pain, Adult, Anemia, Nonspecific, Potassium Content of Foods, Urinary Tract Infection, Adult, Urinary Tract Infection, Adult, [id number], Abdominal Pain, Adult, [id number], Hypokalemia. - Prescriptions for Bentyl 20 mg Oral Tablet - take 1 tablet by ORAL route every 6 hours As needed; 20 tablet. Tylenol- Codeine #3 300-30 mg Oral Tablet - take 2 tablets by ORAL route every 6 hours As needed; 24 tablet. Cipro 250 mg Oral Tablet - take 1 tablet by ORAL route every 12 hours; 14 tablet. - Medication Reconciliation Form, Thank You Letter, Antibiotic Education, Prescription Opioid Use, Family Work Release form. - Follow up: Private Physician; When: 2 - 3 days; Reason: Recheck today's complaints, Continuance of care, Re-evaluation by your physician. - Problem is new. - Symptoms have improved. Signatures: Dispatcher [employer] EDMS Óscar Mendez MD MD cha Krenek, Amber, RN RN ak1 Angel Espinoza RN RN ao Es Blackwood RN RN ea Corrections: (The following items were deleted from the chart) 05:24 05:23 06/14/2018 05:23 Discharged to Home. Impression: Abdominal tenderness; mitchel Hypokalemia; Anemia, unspecified. Condition is Stable. Discharge Instructions: Abdominal Pain, Adult, Abdominal Pain, Adult, [id number], Anemia, Nonspecific, Potassium Content of Foods, Hypokalemia. Prescriptions for Bentyl 20 mg Oral Tablet - take 1 tablet by ORAL route every 6 hours As needed; 20 tablet, Tylenol-Codeine #3 300-30 mg Oral Tablet - take 2 tablets by ORAL route every 6 hours As needed; 24 tablet. and Forms are Medication Reconciliation Form, Thank You Letter, Antibiotic Education, Prescription Opioid Use. Follow up: Private Physician; When: 2 - 3 days; Reason: Recheck today's complaints, Continuance of care, Re-evaluation by your physician. Problem is new. Symptoms have improved. [facility] 06:04 05:24 06/14/2018 05:23 Discharged to Home. Impression: Abdominal tenderness; ak1 Hypokalemia; Anemia, unspecified; Urinary tract infection, site not specified. Condition is Stable. Discharge Instructions: Abdominal Pain, Adult, Abdominal Pain, Adult, [id number], Anemia, Nonspecific, Potassium Content of Foods, Hypokalemia. Prescriptions for Bentyl 20 mg Oral Tablet - take 1 tablet by ORAL route every 6 hours As needed; 20 tablet, Tylenol-Codeine #3 300-30 mg Oral Tablet - take 2 tablets by ORAL route every 6 hours As needed; 24 tablet. and Forms are Medication Reconciliation Form, Thank You Letter, Antibiotic Education, Prescription Opioid Use. Follow up: Private Physician; When: 2 - 3 days; Reason: Recheck today's complaints, Continuance of care, Re-evaluation by your physician. Problem is new. Symptoms have improved. mitchel
[2018-06-14] MEDS ORDERED: CEFTRIAXONE/SWI 1gm 1 GM/10 ML SYR ONE (05:50)
[2018-06-14 06:09] VITALS: TEMP 98.5
[2018-06-14 06:11] VITALS: O2SAT 100
[2018-06-14 06:12] VITALS: BP 116/79
--- NOTE | 2018-06-14 09:13 | RAD REPORT ---
EXAM DESCRIPTION: CT - Abdomen Pelvis W Contrast - 06/14/2018 6:37 am CLINICAL HISTORY: Abdominal pain. Cervical cancer. Pelvic surgery June 10, 2018 COMPARISON: None. TECHNIQUE: Computed axial tomography of the abdomen and pelvis was obtained. 100 cc Isovue-300 is ad ministered intravenously. Oral contrast was given.Preliminary report was generated by [facility] and reviewed prior to this dictation All CT scans are performed using dose optimization technique as appropriate and may include automated exposure control or mA/KV adjustment according to patient size. FINDINGS: The liver, spleen, pancreas, adrenals and kidneys appear unremarkable. The appendix is normal caliber. There is no evidence of diverticulitis Bilateral ovariopexy performed. A small amount of pneumoperitoneum and subcutaneous air is noted. Small amount of free fluid is seen. This all probably the sequela of the recent surgery. 20 millimeter low-density area within the uterine fundus may represent a fibroid or fluid within the endometrium. IMPRESSION: Small amount of ascites within the abdomen and pelvis may simply be the sequela of the r ecent surgery. If the patient's symptoms persist follow-up pelvic ultrasound would be recommended.
== END 2018-06-14 06:04 | disposition home or self-care (01) ==
LOC: ER 02:17
DX: N39.0 Urinary tract infection, site not specified (principal); E87.6 Hypokalemia; D64.9 Anemia, unspecified; Z85.41 Personal history of malignant neoplasm of cervix uteri; Z88.5 Allergy status to narcotic agent
CPT/HCPCS: 36415; 74177; 80048; 80076; 81003; 81025; 83690; 85025; 99284; J0696; J2405; J3010; Q9967

== ENCOUNTER 2018-08-08 19:01 | Emergency (ER) | payer BC, OTHER ==
--- OUTSIDE RECORDS SUMMARY | 2018-08-08 19:04 | XMS REPORT | Clinical Summary ---
:1980 Author Organization [facility] Address [address] [place] [address] Care Team Providers Name Role Phone Pcp, No Primary Care Provider Unavailable Allergies No Known Allergies Medications Medication Sig Dispensed Refills Start Date End Date Status loratadine Take 10 mg by 0 Active (CLARITIN) 10 mg mouth daily. tablet acetaminophen-codein Take 1 tablet by 30 tablet 0 06/13/2018 06/23/2018 e (TYLENOL #3) mouth every 6 300-30 mg per tablet (six) hours as needed for up to 10 days. Max Daily Amount: 4 tablets docusate sodium Take 1 capsule 20 capsule 0 06/13/2018 06/23/2018 (COLACE) 100 MG (100 mg total) capsule by mouth 2 (two) times daily for 10 days. ibuprofen Take 1 tablet 40 tablet 0 06/13/2018 06/23/2018 (ADVIL,MOTRIN) 600 (600 mg total) MG tablet by mouth every 6 (six) hours for 10 days. Active Problems Problem Noted Date Cancer of exocervix 2018 Encounters Date Type Specialty Care Team Description 2018 Anesthesia Event Han Norton MD 2018 Surgery Kyle Vanegas SALPINGECTOMY MD Tony 2018 - Hospital Encounter General Internal Kyle Vanegas 06/13/2018 Medicine MD Tony 05/29/2018 Hospital Encounter Pre-Admission Kyle Vanegas Testing MD Tony after 08/07/2017 Social History Tobacco Use Types Packs/Day Years Used Date Never Smoker Smokeless Tobacco: Never Used Alcohol Use Drinks/Week oz/Week Comments No Sex Assigned at Date Recorded Not on file Job Start Date Occupation Industry Not on file Not on file Not on file Travel History Travel Start Travel End No recent travel history available. Last Filed Vital Signs Vital Sign Reading [...] Not on file Implants Implanted Type Area Gaming Worker Device Shelf Model / Identifier Expiration Serial / Date Lot Memb Seprafilm Mariana Goodrich 5x6 4301-02 - Sn/A Cement/F Abdomen GENZYME ZIGGY : 02/23/2020 4301-02 / Implanted: Qty: 1 on 2018 by Kyle Vanegas MD iller/Ad BIO-SURG N/A / hesive [id number] Flseal Vhsd Full Strlprep 10ml [id number] - Sn/A Cement/F Abdomen LEMONS: BIOSCI 11/03/2019 [id number] / Implanted: Qty: 1 on 2018 by Kyle Vanegas MD iller/Ad N/A / hesive [id number] Memb Seprafilm Mariana Goodrich 5x6 4301-02 - Sn/A Cement/F Abdomen GENZYME ZIGGY : 01/24/2020 4301-02 / Implanted: Qty: 1 on 2018 by Kyle Vanegas MD iller/Ad BIO-SURG N/A / hesive [id number] Procedures Procedure Name Priority Date/Time Associated Comments Diagnosis INTRAOPERATIVE PATH 07/14/2018 2:42 REPORT - SCAN PM GERIATRIC 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 CBC W/PLT COUNT & AUTO Routine 06/12/2018 6:58 Results for this DIFFERENTIAL AM CDT procedure are in the results section. CBC W/PLT COUNT & AUTO Routine 06/11/2018 4:23 Results for this DIFFERENTIAL AM CDT procedure are in the results section. BASIC METABOLIC PANEL Routine 06/11/2018 4:23 Results for this (7) AM CDT procedure are in the results section. CBC W/PLT COUNT & AUTO Routine 06/11/2018 4:23 Results for this DIFFERENTIAL AM CDT procedure are in the results section. TISSUE EXAM AP Routine 2018 8:49 Results for this AM CDT procedure are in the results section. 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 SCREEN, URINE Routine 05/29/2018 12:47 PM CDT CBC W/PLT COUNT & AUTO Routine 05/29/2018 12:47 PM CDT Results for this DIFFERENTIAL procedure are in the results section. TYPE AND SCREEN, AUTOMATED Routine 05/29/2018 12:46 PM CDT BASIC METABOLIC PANEL (7) Routine 05/29/2018 12:46 PM CDT after 08/07/2017 Results INTRAOPERATIVE PATH REPORT - SCAN (07/14/2018 2:42 PM GERIATRIC SOCIAL WORK PROFESSOR)Only the most recent of3 resultswithin the time period is included. Narrative Performed At CBC with platelet count + automated diff (06/12/2018 6:58 AM CDT)Only the most recent of3 resultswithin the time period is included. WBC 8.8 3.5 - 10.5 K/L [facility] RBC 3.61 (L) 3.93 - 5.22 M/L [facility] Hemoglobin 10.3 (L) 11.2 - 15.7 GM/DL [facility] Hematocrit 30.8 (L) 34.1 - 44.9 % [facility] MCV 85.3 79.4 - 94.8 fL [facility] MCH 28.5 25.6 - 32.2 pg [facility] MCHC 33.4 32.2 - 35.5 GM/DL [facility] RDW 14.5 (H) 11.7 - 14.4 % [facility] Platelets 212 150 - 450 K/CU MM [facility] MPV 10.2 9.4 - 12.3 fL [facility] nRBC 0 0 - 0 /100 WBC [facility] % Neutros 75 % [facility] % Lymphs 15 % [facility] % Monos 9 % [facility] % Eos 1 % [facility] % Baso 1 % [facility] # Neutros 6.60 (H) 1.56 - 6.13 K/L [facility] # Lymphs 1.30 1.18 - 3.74 K/L [facility] # Monos 0.76 (H) 0.24 - 0.36 K/L [facility] # Eos 0.11 0.04 - 0.36 K/L [facility] # Baso 0.04 0.01 - 0.08 K/L [facility] Immature Granulocytes-Relative 0 0 - 1 % [facility] Specimen Blood - Arm, Left Performing Organization Address City/State/Zipcode Phone Number [facility] [address] [place] [address] CENTER Basic Metabolic Panel (06/11/2018 4:23 AM CDT)Only the most recent of2 resultswithin the time period is included. Sodium 134 (L) 136 - 145 meq/L [facility] Potassium 4.3 3.5 - 5.1 meq/L [facility] Chloride 103 98 - 107 meq/L [facility] CO2 24 22 - 29 meq/L [facility] BUN 10 7 - 21 mg/dL [facility] Creatinine 0.73 0.57 - 1.25 mg/dL [facility] Glucose 127 (H) 70 - 105 mg/dL [facility] Calcium 8.3 (L) 8.4 - 10.2 mg/dL [facility] EGFR 90Comment: ESTIMATED GFR IS mL/min/1.73 sq m [facility] NOT ACCURATE CREATININE [facility] CENTER CLEARANCE IN PREDICTING GLOMERULAR FILTRATION RATE. ESTIMATED GFR IS NOT APPLICABLE FOR DIALYSIS PATIENTS. Specimen Blood - Arm, Right Performing Organization Address City/State/Zipcode Phone Number [facility] [address] [place] [address] [phone] CENTER Tissue Exam (2018 8:49 AM CDT) Case Report Surgical Pathology Report Case: [id number] [facility] Authorizing Provider:Kyle Vanegas, Collected: 2018 0849 [facility] Ordering Location: [facility] PERIOPERATIVE Received: 2018 0905 SERVICES Pathologist: Redd Marino MD Specimens: A) - Lymph Node, Pelvic, Left B) - Lymph Node, left obturator lymph node C) - Lymph Node, Pelvic, Right D) - Lymph Node, right obturator lymph node E) - Lymph Node, Pelvic, Right, additional right pelvic lymph node F) - Fallopian Tube, Left G) - Fallopian Tube, Right DIAGNOSIS A. PELVIC, LEFT, LYMPH NODE, DISSECTION: [facility] - TWO LYMPH NODES NEGATIVE FOR MALIGNANCY (0/2) [facility] B. OBTURATOR LYMPH NODE, LEFT, DISSECTION: - FOURTEEN LYMPH NODES, ONE POSITIVE FOR METASTATIC SQUAMOUS CARCINOMA ( 2.0 CM GREATEST DIMENSION) (1/14 NODES) C. PELVIC, RIGHT, LYMPH NODE, DISSECTION: - ONE LYMPH NODE NEGATIVE FOR MALIGNANCY (0/1) D. OBTURATOR LYMPH NODE, RIGHT, DISSECTION: - THREE LYMPH NODES NEGATIVE FOR MALIGNANCY(0/3) E. PELVIC, RIGHT, ADDITIONAL LYMPH NODE, DISSECTION: - TWO LYMPH NODES NEGATIVE FOR MALIGNANCY (0/2) F. FALLOPIAN TUBE, LEFT, SALPINGECTOMY: - COMPLETE CROSS SECTION - ENDOMETRIOSIS - BENIGN PARATUBAL CYST - NEGATIVE FOR MALIGNANCY G. FALLOPIAN TUBE, RIGHT, SALPINGECTOMY: - COMPLETE CROSS SECTION WITH NO DIAGNOSTIC PATHOLOGICAL CHANGE - BENIGN PARATUBAL CYST - NEGATIVE FOR MALIGNANCY Signing Pathologist Direct Phone Line: [phone] CPT Code(s) 25157 X 4, 23821 X 1 [facility] [address]7539 X 2 [facility] CLINICAL HISTORY Procedure is hysterectomy, abdomen [facility] Preoperative diagnosis, cancer of exocervix [facility] Salpingectomy GROSS DESCRIPTION Part A: The specimen is received in formalin labeled as "LN pelvic L" and consists of a 3.5 x 3 x 0.5 cm fibrofatty soft tissue. There is no lymph node identified grossly. The specimen is submitted entirely in cassette A1-A3. WA/pl [facility] Part B: The specimen is received fresh labeled "lymph node" is a two fibrofatty fragments of soft tissue measuring 8 x 2 x 0.5 cm and 3 x 1.5 x 0.5 cm consistent with five lymph nodes measuring 3, 3, 1, 0.5, and 0.2 cm. The entire specimen is submitted as follows: B1, 3 cm lymph node, bisected, consistent with 0.5 cm white, well circumscribed white focal area. B2, 3 cm lymph node, bisected. B3, 1 cm, 0.5 cm, 0.2 cm lymph nodes, submitted entirely for frozen section. B4, B5, remainder of the fat tissue. Part C: The specimen is received fresh labeled "LN pelvic R" is an 8 x 4 x 0.5 cm fatty soft tissue consistent with one lymph node measuring 3 x 2.5 x 0.5 cm. The lymph node is bisected and submitted for touch prep. Section code: C1, 3 cm lymph node, bisected. C2, remainder of the specimen. Part D: The specimen is received fresh labeled "lymph node" is a 5.3 x 0.5 cm fragment of fibrofatty soft tissue consistent with 2.5 x 2.5 x 0.5 cm lymph node. The lymph node is bisected to show 0.3 x 0 .3 cm brown foci. The specimen is submitted entirely for frozen and touch prep. Section code: FSD1, lymph node D2, remainder of the specimen. WA/ew Part E. The specimen is received in formalin labeled "LN pelvic right" and consists of a 5 x 2.5 x 0.5 cm aggregate of fibrofatty soft tissue. There is 2 x 1 x 0.3 cm lymph node. secondary to E1, lymph node bisected; E2 and E3, remainder of specimen. Part F: The specimen is received in formalin labeled "fallopian left" and consists of a 5 cm in length and 1 cm in diameter fimbriated fallopian tube with 1 cm peritubular cyst. The serosa is red and hy peremic. The fallopian tube is serially sectioned and submitted entirely in cassette F1-F3. Part G: The specimen is received in formalin labeled "fallopian tube right" and consists of a 5 cm in length and 1 cm in diameter fallopian tube with two peritubal cysts measuring 0.5 and 1 cm filled w ith clear fluid. The serosa is red and hyperemic. The cut surface displays a pinpoint lumen. The specimen is submitted entirely in cassette G1-G3. WA/pl INTRAOPERATIVE CONSULTATION [facility] PART B, LEFT OBTURATOR LYMPH NODES, EXCISION: [facility] FSB1-B3 CARCINOMA (FSB1) - FSB2, FSB3: NEGATIVE FOR MALIGNANCY (0/4) Reported by Dr. Marino PART C, RIGHT PELVIC LYMPH NODE, EXCISION: - ONE FATTY LYMPH NODE, TOUCH PREP CYTOLOGY: - NEGATIVE FOR MALIGNANCY, LYMPH NODE PENDING FOR PERMANENT Reported by Dr. Marino PART D, LYMPH NODE, RIGHT OBTURATOR, FROZEN SECTION FSD: - ONE LYMPH NODE 0/, NEGATIVE FOR MALIGNANCY Reported by Dr. Marino MICROSCOPIC DESCRIPTION Performed [facility] Specimen Tissue - Lymph Node, Pelvic, Left Performing Organization Address [facility] Phone Number [facility] [address], [place] [id number] [phone] CENTER POCT , urine (2018 6:43 AM CDT) Test Urine, POC Negative Control line present?, POC Yes Background clear?, POC Yes UPT Cassette Lot #, POC [id number] UPT Cassette Expiration Date, POC 12/24/2019 TRANSFUSION SERVICE REPORT - SCAN (05/30/2018 6:03 PM CDT) Narrative Performed At Screen, urine (05/29/2018 12:47 PM CDT) Preg Test, Ur Negative [facility] Specimen Urine Performing Organization Address [facility] Phone Number [facility] [address] [place] [address] CENTER Type and screen, automated (05/29/2018 12:46 PM CDT) ABO/RH AUTOMATED (BEAKER) O POSITIVE [facility] Ab Scrn NEGATIVE [facility] Specimen Blood Performing Organization Address [facility] Phone Number [facility] [address] [place] [address] after 08/07/2017 Insurance Payer Benefit Plan / Subscriber ID Type Phone Address Group BLUE CROSS/BLUE BCBS PPO POS xxxxxxxxxxxx PPO [phone] [address] [place] [address] MEDICAID - [facility] COMM xxxxxxxxx Medicaid MEDICAID [id number] STAR PLAN Contracted CARE Advance Directives For more information, please contact:[place] [id number] [place], [place] [phone] Code Status Date Activated Date Inactivated Comments Full Code 2018 4:26 PM 06/13/2018 1:41 PM This code status was determined by: Patient
--- OUTSIDE RECORDS SUMMARY | 2018-08-08 19:04 | XMS REPORT ---
:1980 Author Organization [facility] Address [address] [place] [address] Dr. [address] [place] [address] Care Team Providers Name Role Phone KYLE VANEGAS Unavailable Unavailable Problems This patient has no known problems. Allergies, Adverse Reactions, Alerts This patient has no known allergies or adverse reactions. Medications This patient has no known medications. Results Test Description Test Time Test Comments Text Results Atomic Results Result Comments TISSUE EXAM 2018-06-16 00:53:00 Surgical Pathology Report Case: [id number] Authorizing Provider: Kyle Vanegas, Collected: 2018 0849 Ordering Location: [facility] PERIOPERATIVE Received: 2018 0905 SERVICES Pathologist: Redd Marino MD Specimens: A) - Lymph Node, Pelvic, Left B) - Lymph Node, left obturator lymph node C) - Lymph Node, Pelvic, Right D) - Lymph Node, right obturator lymph node E) - Lymph Node, Pelvic, Right, additional right pelvic lymph node F) - Fallopian Tube, Left G) - Fallopian Tube, Right A. PELVIC, LEFT, LYMPH NODE, DISSECTION: - TWO LYMPH NODES NEGATIVE FOR MALIGNANCY (0/2)B. OBTURATOR LYMPH NODE, LEFT, DISSECTION: - FOURTEEN LYMPH NODES, ONE POSITIVE FOR METASTATIC SQUAMOUS CARCINOMA (2.0 CM GREATEST DIMENSION) (1/14 NODES)C. PELVIC, RIGHT, LYMPH NODE, DISSECTION: - ONE LYMPH NODE NEGATIVE FOR MALIGNANCY (0/1)D. OBTURATOR LYMPH NODE, RIGHT, DISSECTION: - THREE LYMPH NODES NEGATIVE FOR MALIGNANCY(0/3) E. PELVIC, RIGHT, ADDITIONAL LYMPH NODE, DISSECTION: - TWO LYMPH NODES NEGATIVE FOR MALIGNANCY (0/2)F. FALLOPIAN TUBE, LEFT, SALPINGECTOMY: - COMPLETE CROSS SECTION - ENDOMETRIOSIS - BENIGN PARATUBAL CYST - NEGATIVE FOR MALIGNANCY G. FALLOPIAN TUBE, RIGHT, SALPINGECTOMY: - COMPLETE CROSS SECTION WITH NO DIAGNOSTIC PATHOLOGICAL CHANGE - BENIGN PARATUBAL CYST - NEGATIVE FOR MALIGNANCY Signing Pathologist Direct Phone Line: [phone] signed by Redd Marino MD on 06/16/2018 at 12:53 [id number] X [id number], [id number] X [id number] X 2 Procedure is hysterectomy, abdomen Preoperative diagnosis, cancer of exocervix Salpingectomy Part A: The specimen is received in formalin labeled as "LN pelvic L" and consists of a 3.5 x 3 x 0.5 cm fibrofatty soft tissue. There is no lymph node identified grossly. The specimen is submitted entirely in cassette A1-A3. WA/plPart B: The specimen is received fresh labeled "lymph node" is a two fibrofatty fragments of soft tissue measuring 8 x 2 x 0.5 cm and 3 x 1.5 x 0.5 cm consistent with five lymph nodes measuring 3, 3, 1, 0.5, and 0.2 cm.The entire specimen is submitted as follows:B1, 3 cm lymph node, bisected, consistent with 0.5 cm white, well circumscribed white focal area. B2, 3 cm lymph node, bisected.B3, 1 cm, 0.5 cm, 0.2 cm lymph nodes, submitted entirely for frozen section.B4, B5, remainder of the fat tissue.Part C: The specimen is received fresh labeled "LN pelvic R" is an 8 x 4 x 0.5 cm fatty soft tissue consistent with one lymph node measuring 3 x 2.5 x 0.5 cm. The lymph node is bisected and submitted for touch prep.Section code:C1, 3 cm lymph node, bisected.C2, remainder of the specimen.Part D: The specimen is received fresh labeled "lymph node" is a 5.3 x 0.5 cm fragment of fibrofatty soft tissue consistent with 2.5 x 2.5 x 0.5 cm lymph node. The lymph node is bisected to show 0.3 x 0.3 cm brown foci. The specimen is submitted entirely for frozen and touch prep.Section code:FSD1, lymph nodeD2, remainder of the specimen.WA/ewPart E. The specimen is received in formalin [...] peritubular cyst. The serosa is red and hyperemic. The fallopian tube is serially sectioned and submitted entirely in cassette F1-F3. Part G: The specimen is received in formalin labeled "fallopian tube right" and consists of a 5 cm in length and 1 cm in diameter fallopian tube with two peritubal cysts measuring 0.5 and 1 cm filled with clear fluid. The serosa is red and hyperemic. The cut surface displays a pinpoint lumen. The specimen is submitted entirely in cassette G1-G3. WA/plPART B, LEFT OBTURATOR LYMPH NODES, EXCISION:FSB1-B3 CARCINOMA (FSB1) - FSB2, FSB3: NEGATIVE FOR MALIGNANCY (0/4)Reported by Dr. Syeda Mccain, RIGHT PELVIC LYMPH NODE, EXCISION: - ONE FATTY LYMPH NODE, TOUCH PREP CYTOLOGY: - NEGATIVE FOR MALIGNANCY, LYMPH NODE PENDING FOR PERMANENT Reported by Dr. Syeda iYng, LYMPH NODE, RIGHT OBTURATOR, FROZEN SECTION FSD: - ONE LYMPH NODE 0/1, NEGATIVE FOR MALIGNANCY Reported by Dr. Castaneda CBC W/PLT COUNT & AUTO DIFFERENTIAL 2018-06-12 07:09:00 Test Item Value Reference Range Comments WHITE BLOOD CELL COUNT (BEAKER) (test rpev=006) 8.8 K/ L 3.5-10.5 RED BLOOD CELL COUNT (BEAKER) (test ztrm=898) 3.61 M/ L 3.93-5.22 HEMOGLOBIN (BEAKER) (test llha=957) 10.3 GM/DL 11.2-15.7 HEMATOCRIT (BEAKER) (test hers=814) 30.8 % 34.1-44.9 MEAN CORPUSCULAR VOLUME (BEAKER) (test nekb=207) 85.3 fL 79.4-94.8 MEAN CORPUSCULAR HEMOGLOBIN (BEAKER) (test yzer=134) 28.5 pg 25.6-32.2 MEAN CORPUSCULAR HEMOGLOBIN CONC (BEAKER) (test lojk=433) 33.4 GM/DL 32.2- 35.5 RED CELL DISTRIBUTION WIDTH (BEAKER) (test uxzj=645) 14.5 % 11.7-14.4 PLATELET COUNT (BEAKER) (test nidq=871) 212 K/CU MM 150-450 MEAN PLATELET VOLUME (BEAKER) (test oavd=639) 10.2 fL 9.4-12.3 NUCLEATED RED BLOOD CELLS (BEAKER) (test ymbt=231) 0 /100 WBC 0-0 NEUTROPHILS RELATIVE PERCENT (BEAKER) (test fjmv=043) 75 % LYMPHOCYTES RELATIVE PERCENT (BEAKER) (test jsmk=207) 15 % MONOCYTES RELATIVE PERCENT (BEAKER) (test iqxt=491) 9 % EOSINOPHILS RELATIVE PERCENT (BEAKER) (test lgtk=666) 1 % BASOPHILS RELATIVE PERCENT (BEAKER) (test pvoc=304) 1 % NEUTROPHILS ABSOLUTE COUNT (BEAKER) (test ismt=745) 6.60 K/ L 1.56-6.13 LYMPHOCYTES ABSOLUTE COUNT (BEAKER) (test zhbi=260) 1.30 K/ L 1.18-3.74 MONOCYTES ABSOLUTE COUNT (BEAKER) (test gjiz=062) 0.76 K/ L 0.24-0.36 EOSINOPHILS ABSOLUTE COUNT (BEAKER) (test uepn=880) 0.11 K/ L 0.04-0.36 BASOPHILS ABSOLUTE COUNT (BEAKER) (test tdtb=045) 0.04 K/ L 0.01-0.08 IMMATURE GRANULOCYTES-RELATIVE PERCENT (BEAKER) (test 0 % 0-1 cldv=4473) BASIC METABOLIC [id number] 05:09:00 Test Item Value Reference Range Comments SODIUM (BEAKER) (test 134 meq/L 136-145 lbke=722) POTASSIUM (BEAKER) (test 4.3 meq/L 3.5-5.1 nsma=992) CHLORIDE (BEAKER) (test 103 meq/L 98-107 ddzk=640) CO2 (BEAKER) (test 24 meq/L 22-29 ileo=496) BLOOD UREA NITROGEN 10 mg/dL 7-21 (BEAKER) (test vefp=966) CREATININE (BEAKER) (test 0.73 mg/dL 0.57-1.25 vbcc=651) GLUCOSE RANDOM (BEAKER) 127 mg/dL 70-105 (test qjzl=234) CALCIUM (BEAKER) (test 8.3 mg/dL 8.4-10.2 yhbv=263) EGFR (BEAKER) (test 90 mL/min/1.73 sq m ESTIMATED GFR IS NOT phjf=1200) ACCURATE CREATININE CLEARANCE IN PREDICTING GLOMERULAR FILTRATION RATE. ESTIMATED GFR IS NOT APPLICABLE FOR DIALYSIS PATIENTS. CBC W/PLT COUNT & AUTO [id number] 04:57:00 Test Item Value Reference Range Comments WHITE BLOOD CELL COUNT (BEAKER) (test xwfg=284) 13.4 K/ L 3.5-10.5 RED BLOOD CELL COUNT (BEAKER) (test udzz=483) 4.27 M/ L 3.93-5.22 HEMOGLOBIN (BEAKER) (test fgfd=382) 11.8 GM/DL 11.2-15.7 HEMATOCRIT (BEAKER) (test myqx=540) 36.9 % 34.1-44.9 MEAN CORPUSCULAR VOLUME (BEAKER) (test eptg=690) 86.4 fL 79.4-94.8 MEAN CORPUSCULAR HEMOGLOBIN (BEAKER) (test 27.6 pg 25.6-32.2 kkmb=727) MEAN CORPUSCULAR HEMOGLOBIN CONC (BEAKER) (test 32.0 GM/DL 32.2-35.5 hycc=017) RED CELL DISTRIBUTION WIDTH (BEAKER) (test 14.5 % 11.7-14.4 psdb=053) PLATELET COUNT (BEAKER) (test uynj=784) 277 K/CU MM 150-450 MEAN PLATELET VOLUME (BEAKER) (test fqqm=114) 10.2 fL 9.4-12.3 NUCLEATED RED BLOOD CELLS (BEAKER) (test 0 /100 WBC 0-0 hyhu=399) NEUTROPHILS RELATIVE PERCENT (BEAKER) (test 79 % ufqp=685) LYMPHOCYTES RELATIVE PERCENT (BEAKER) (test 13 % pnmz=170) MONOCYTES RELATIVE PERCENT (BEAKER) (test 8 % vddk=026) EOSINOPHILS RELATIVE PERCENT (BEAKER) (test 0 % xfnf=084) BASOPHILS RELATIVE PERCENT (BEAKER) (test 0 % kgup=481) NEUTROPHILS ABSOLUTE COUNT (BEAKER) (test 10.56 K/ L 1.56-6.13 wofl=229) LYMPHOCYTES ABSOLUTE COUNT (BEAKER) (test 1.67 K/ L 1.18-3.74 mswm=096) MONOCYTES ABSOLUTE COUNT (BEAKER) (test 1.05 K/ L 0.24-0.36 gxky=893) EOSINOPHILS ABSOLUTE COUNT (BEAKER) (test 0.02 K/ L 0.04-0.36 dzmq=311) BASOPHILS ABSOLUTE COUNT (BEAKER) (test 0.05 K/ L 0.01-0.08 tehr=388) IMMATURE GRANULOCYTES-RELATIVE PERCENT (BEAKER) 0 % 0-1 (test ndma=9158) BASIC METABOLIC [id number] 13:20:00 Test Item Value Reference Range Comments SODIUM (BEAKER) (test 142 meq/L 136-145 vtwq=135) POTASSIUM (BEAKER) (test 3.5 meq/L 3.5-5.1 dwgc=191) CHLORIDE (BEAKER) (test 107 meq/L 98-107 iedr=796) CO2 (BEAKER) (test 31 meq/L 22-29 wnua=532) BLOOD UREA NITROGEN 10 mg/dL 7-21 (BEAKER) (test bybk=372) CREATININE (BEAKER) (test 0.81 mg/dL 0.57-1.25 urwm=998) GLUCOSE RANDOM (BEAKER) 96 mg/dL 70-105 (test zrii=343) CALCIUM (BEAKER) (test 9.4 mg/dL 8.4-10.2 bmjs=553) EGFR (BEAKER) (test 80 mL/min/1.73 sq m ESTIMATED GFR IS NOT irqq=4367) ACCURATE CREATININE CLEARANCE IN PREDICTING GLOMERULAR FILTRATION RATE. ESTIMATED GFR IS NOT APPLICABLE FOR DIALYSIS PATIENTS. SCREEN, [id number] 13:17:00 Test Item Value Reference Range Comments TEST URINE (BEAKER) (test mtci=284) Negative CBC W/PLT COUNT & AUTO [id number] 13:06:00 Test Item Value Reference Range Comments WHITE BLOOD CELL COUNT (BEAKER) (test iidk=545) 7.5 K/ L 3.5-10.5 RED BLOOD CELL COUNT (BEAKER) (test eudd=718) 4.45 M/ L 3.93-5.22 HEMOGLOBIN (BEAKER) (test qlot=525) 12.3 GM/DL 11.2-15.7 HEMATOCRIT (BEAKER) (test bcst=847) 37.5 % 34.1-44.9 MEAN CORPUSCULAR VOLUME (BEAKER) (test gtup=743) 84.3 fL 79.4-94.8 MEAN CORPUSCULAR HEMOGLOBIN (BEAKER) (test 27.6 pg 25.6-32.2 rkep=915) MEAN CORPUSCULAR HEMOGLOBIN CONC (BEAKER) (test 32.8 GM/DL 32.2-35.5 bgjb=786) RED CELL DISTRIBUTION WIDTH (BEAKER) (test 14.1 % 11.7-14.4 hlcv=531) PLATELET COUNT (BEAKER) (test haow=460) 283 K/CU MM 150-450 MEAN PLATELET VOLUME (BEAKER) (test itak=763) 10.0 fL 9.4-12.3 NUCLEATED RED BLOOD CELLS (BEAKER) (test 0 /100 WBC 0-0 ecpk=068) NEUTROPHILS RELATIVE PERCENT (BEAKER) (test 61 % hggq=398) LYMPHOCYTES RELATIVE PERCENT (BEAKER) (test 25 % likv=820) MONOCYTES RELATIVE PERCENT (BEAKER) (test 10 % nhbq=591) EOSINOPHILS RELATIVE PERCENT (BEAKER) (test 4 % eiko=673) BASOPHILS RELATIVE PERCENT (BEAKER) (test 1 % djnk=767) NEUTROPHILS ABSOLUTE COUNT (BEAKER) (test 4.56 K/ L 1.56-6.13 mveq=682) LYMPHOCYTES ABSOLUTE COUNT (BEAKER) (test 1.84 K/ L 1.18-3.74 utzw=443) MONOCYTES ABSOLUTE COUNT (BEAKER) (test 0.72 K/ L 0.24-0.36 usbk=155) EOSINOPHILS ABSOLUTE COUNT (BEAKER) (test 0.32 K/ L 0.04-0.36 pgnq=118) BASOPHILS ABSOLUTE COUNT (BEAKER) (test 0.06 K/ L 0.01-0.08 lbrk=303) IMMATURE GRANULOCYTES-RELATIVE PERCENT (BEAKER) 0 % 0-1 (test asqt=6642)
--- OUTSIDE RECORDS SUMMARY | 2018-08-08 19:04 | XMS REPORT | Clinical Summary ---
:1980 Author Organization [facility] Address [address] [place] [address] Care Team Providers Name Role Phone Unavailable Primary Care Provider Unavailable Allergies Not on File Medications Not on file Active Problems Not on file Encounters Date Type Specialty Care Team Description 07/26/2018 Hospital Encounter Radiation Oncology Damian Boyd MD after 08/07/2017 Social History Tobacco Use Types Packs/Day Years Used Date Never Assessed Sex Assigned at Date Recorded Not on file Job Start Date Occupation Industry Not on file Not on file Not on file Travel History Travel Start Travel End No recent travel history available. Last Filed Vital Signs Not on file Plan of Treatment Health Maintenance Due Date Last Done Comments CERVICAL CANCER SCREENING 2003 INFLUENZA VACCINE 03/26/2018 Results Not on fileafter 08/07/2017 Insurance Payer Benefit Plan / Group Subscriber ID Type Phone Address BCBS BCBS CHOICE PPO/FEDERAL EMPL PPO xxxxxxxxxxxx PPO [facility] MEDICAID [facility] [employer] xxxxxxxxx HMO Advance Directives Patient has advance care planning documents on file. For more information, please contact:[address] [address]
--- NOTE | 2018-08-08 19:54 | RAD REPORT ---
EXAM DESCRIPTION: Beto Single View08/08/2018 7:46 pm CLINICAL HISTORY: Chest pain COMPARISON: December 2017 FINDINGS: The lungs appear clear of acute infiltrate. The heart is normal size IMPRESSION: No acute abnormalities displayed
[2018-08-08] MEDS ORDERED: LORazepam 2 MG/ML VIAL ONE (19:55)
[2018-08-08] MEDS ORDERED: NA CHLORIDE 0.9% 1,000 ML ONE (19:55)
[2018-08-08 20:07] LABS: Protime INR 1.03
[2018-08-08 20:11] LABS: Absolute Monocytes 0.7 K/uL (0.1-1.3); Absolute Neutrophil 15.8 K/uL (1.8-8.0); Basophils % 0.1 % (0-1.3); Hematocrit 33.6 % (36.0-45.0); Lymphocytes % 5.9 % (15.3-44.8); MCH 27.5 pg (27.0-35.0); MCV 82.2 fL (80-100); MPV 8.8 fL (7.6-11.3); Monocytes % 4.2 % (3.3-12.3); RBC Red Blood Cell Count 4.09 M/uL (3.86-4.86)
[2018-08-08 20:18] LABS: ALT/SGPT 20 U/L (12-78); AST/SGOT 10 U/L (15-37); Albumin 3.4 g/dL (3.4-5.0); Alkaline Phosphatase 89 U/L (45-117); BUN Blood Urea Nitrogen 14 mg/dL (7-18); Bicarbonate 24 mmol/L (21-32); Bilirubin Direct 0.1 mg/dL (0-0.2); Bilirubin Total 0.2 mg/dL (0.2-1.0); Glucose Level 121 mg/dL (74-106); Magnesium 2.3 mg/dL (1.8-2.4); NT PRO-BNP 287 pg/mL (<125); Potassium 3.8 mmol/L (3.5-5.1); Protein, Total 6.8 g/dL (6.4-8.2); Sodium Level 140 mmol/L (136-145); Troponin (Emerg Dept Use Only) < 0.02 ng/mL (0.0-0.045)
[2018-08-08 20:36] LABS: Platelet Estimate INCR; Urine White Blood Cell Casts OK
[2018-08-08 20:37] LABS: Blood Morphology Comment NOTED (NOT SEEN); Elliptocytes 1+
--- NOTE | 2018-08-08 20:45 | ER ---
Nurse's Notes [facility] Name: Corinna Rosario Age: 38 yrs Sex: Female : 1980 Arrival Date: 08/08/2018 Time: 19:05 Bed 14 Private MD: Diagnosis: Anxiety disorder, unspecified Presentation: 08/08 19:12 Presenting complaint: Patient states: chest pain that began this morning. PT reports ss that she started chemo and radiation for cervical cancer two days ago. Transition of care: patient was not received from another setting of care. Onset of symptoms was August 08, 2018. Risk Assessment: Do you want to hurt yourself or someone else? Patient reports no desire to harm self or others. Initial Sepsis Screen: Does the patient meet any 2 criteria? No. Patient's initial sepsis screen is negative. Does the patient have a suspected source of infection? No. Patient's initial sepsis screen is negative. Care prior to arrival: None. 19:12 Method Of Arrival: Ambulatory ss 19:12 Acuity: EBONI 3 ss Historical: - Allergies: 19:14 Morphine; ss - PMHx: 19:14 cervical cancer; ss - PSHx: 19:14 fallopian tubes removed and ovaries "pinned up"; ss - Immunization history:: Adult Immunizations up to date. - Social history:: Smoking status: Patient/guardian denies using tobacco, Patient/guardian denies using alcohol, street drugs, The patient lives with family. - Ebola Screening: : Patient denies exposure to infectious person Patient denies travel to an Ebola-affected area in the 21 days before illness onset. - Family history:: not pertinent, pertinent for. - Hospitalizations: : No recent hospitalization is reported. Screenin:30 Abuse screen: Denies threats or abuse. Nutritional screening: No deficits noted. jb4 Tuberculosis screening: No symptoms or risk factors identified. Fall Risk IV access (20 points). Total Mendes Fall Scale indicates No Risk (0-24 pts). Assessment: 19:30 General: Appears in no apparent distress. uncomfortable, Behavior is cooperative, jb4 anxious. Pain: Complains of pain in xyphoid area and mid-sternal area Pain radiates to throat Pain currently is 6 out of 10 on a pain scale. Quality of pain is described as pressure, Pain began Earlier today. Is intermittent. Neuro: Level of Consciousness is awake, alert, obeys commands, Oriented to person, place, time, situation. Cardiovascular: Heart tones S1 S2 present Patient's skin is warm and dry. Respiratory: Airway is patent Respiratory effort is even, unlabored, Respiratory pattern is regular, symmetrical, Breath sounds are clear bilaterally. GI: No signs and/or symptoms were reported involving the gastrointestinal system. : No signs and/or symptoms were reported regarding the genitourinary system. EENT: Throat is clear. Derm: Skin is intact, Skin is pink, warm \\T\\ dry. Musculoskeletal: Circulation, motion, and sensation intact. 20:30 Reassessment: Patient appears in no apparent distress at this time. Patient and/or jb4 family updated on plan of care and expected duration. Pain level reassessed. Patient is alert, oriented x 3, equal unlabored respirations, skin warm/dry/pink. Patient states feeling better. 21:00 Reassessment: Patient appears in no apparent distress at this time. Patient and/or jb4 family updated on plan of care and expected duration. Pain level reassessed. Patient is alert, oriented x 3, equal unlabored respirations, skin warm/dry/pink. Discussed D/c, F/u with pt, denies questions or concerns. Vital Signs: 19:14 BP 128 / 86; Pulse 100; Resp 17; Temp 97.8(TE); Pulse Ox 97% on R/A; Weight 66.22 kg; ss Height 5 ft. 0 in. (152.40 cm); Pain 5/10; 19:53 BP 121 / 89; Pulse 65; Resp 16; Pulse Ox 99% on R/A; mt 21:00 BP 108 / 73; Pulse 76; Resp 16; Pulse Ox 99% on R/A; jb4 19:14 Body Mass Index 28.51 (66.22 kg, 152.40 cm) ED Course: 19:05 Patient arrived in ED. as 19:13 Triage completed. 19:14 Arm band placed on right wrist. 19:17 Rex Montemayor, RN is Primary Nurse. [facility] 19:18 Edmond Chirinos MD is Attending Physician. ma2 19:30 Patient has correct armband on for positive identification. Bed in low position. Call jb4 light in reach. Side rails up X 1. Pulse ox on. NIBP on. 19:30 Patient maintains SpO2 saturation greater than 95% on room air. jb4 19:35 Inserted saline lock: 20 gauge in right antecubital area, using aseptic technique. ak Blood collected. 19:46 XRAY Chest (1 view) In Process Unspecified. EDMS 20:00 No provider procedures requiring assistance completed. Inserted saline lock: 20 gauge jb4 in left antecubital area, using aseptic technique. IV discontinued, intact, bleeding controlled. 21:00 IV discontinued, intact, bleeding controlled. jb4 Administered Medications: 20:00 Drug: Ativan 1 mg Route: IVP; Site: left antecubital; jb4 20:30 Follow up: Response: No adverse reaction; Pain is decreased; Anxiety decreased jb4 20:00 Drug: NS 0.9% 1000 ml Route: IV; Rate: 1 bolus; Site: left antecubital; jb4 21:00 Follow up: Response: No adverse reaction; IV Status: Completed infusion jb4 21:10 Drug: Reglan 10 mg Route: IVP; Site: left antecubital; jb4 21:11 Follow up: Response: No adverse reaction jb4 21:10 Drug: Tylenol 1000 mg Route: PO; jb4 21:10 Follow up: Response: No adverse reaction jb4 Outcome: 20:45 Discharge ordered by . estrada 21:00 Discharged to home ambulatory, with family. jb4 21:00 Condition: stable 21:00 Discharge instructions given to patient, Instructed on discharge instructions, follow up and referral plans. medication usage, Demonstrated understanding of instructions, follow-up care, medications, Prescriptions given X 1. 21:14 Patient left the ED. jb4 Signatures: Dispatcher [employer] Shoshana Blanco Shelby, NORA RN Rex Montemayor RN RN jb4 Thompson, Moriah mt Alzahri, Mohammad, MD MD ma2
--- NOTE | 2018-08-08 20:46 | EDPHYS ---
Physician Documentation [facility] Name: Corinna Rosario Age: 38 yrs Sex: Female : 1980 Arrival Date: 08/08/2018 Time: 19:05 Bed 14 Private MD: ED Physician Edmond Chirinos HPI: 08/08 19:32 This 38 yrs old Female presents to ER via Ambulatory with complaints of Chest ma2 Pain, Difficulty Swallowing. 19:32 The patient or guardian reports chest pain that is located primarily in the epigastric ma2 area. The pain radiates to Associated signs and symptoms: Pertinent negatives: None. recent travel, shortness of breath, syncope, vomiting. 19:34 The chest pain is described as crushing. Duration: The patient or guardian reports a ma2 single episode, that is still ongoing. Severity of pain: At its worst the pain was moderate in the emergency department the pain is unchanged. The patient has experienced similar episodes in the past. Historical: - Allergies: 19:14 Morphine; ss - PMHx: 19:14 cervical cancer; ss - PSHx: 19:14 fallopian tubes removed and ovaries "pinned up"; ss - Immunization history:: Adult Immunizations up to date. - Social history:: Smoking status: Patient/guardian denies using tobacco, Patient/guardian denies using alcohol, street drugs, The patient lives with family. - Ebola Screening: : Patient denies exposure to infectious person Patient denies travel to an Ebola-affected area in the 21 days before illness onset. - Family history:: not pertinent, pertinent for. - Hospitalizations: : No recent hospitalization is reported. ROS: 19:34 Constitutional: Negative for fever, chills, and weight loss, Eyes: Negative for injury, ma2 pain, redness, and discharge, ENT: Negative for injury, pain, and discharge, Neck: Negative for injury, pain, and swelling, Respiratory: Negative for shortness of breath, cough, wheezing, and pleuritic chest pain, Abdomen/GI: Negative for abdominal pain, nausea, diarrhea, and constipation, Back: Negative for injury and pain, MS/Extremity: Negative for injury and deformity, Skin: Negative for injury, rash, and discoloration, Neuro: Negative for headache, weakness, numbness, tingling, and seizure, Allergy/Immunology: Negative for hives, rash, and allergies, Endocrine: Negative for neck swelling, polydipsia, polyuria, polyphagia, and marked weight changes. 19:34 Cardiovascular: Positive for chest pain, Negative for edema, orthopnea, palpitations, paroxysmal nocturnal dyspnea, acute changes. 19:34 Psych: Positive for anxiety, Negative for visual hallucinations, homicidal ideation, suicide gesture, suicidal ideation. 19:34 All other systems are negative. Exam: 19:34 Constitutional: This is a well developed, well nourished patient who is awake, alert, ma2 and in no acute distress. Eyes: Pupils equal round and reactive to light, extra-ocular motions intact. Lids and lashes normal. Conjunctiva and sclera are non-icteric and not injected. Cornea within normal limits. Periorbital areas with no swelling, redness, or edema. ENT: Nares patent. No nasal discharge, no septal abnormalities noted. Tympanic membranes are normal and external auditory canals are clear. Oropharynx with no redness, swelling, or masses, exudates, or evidence of obstruction, uvula midline. Mucous membranes moist. Neck: Trachea midline, no thyromegaly or masses palpated, and no cervical lymphadenopathy. Supple, full range of motion without nuchal rigidity, or vertebral point tenderness. No Meningismus. Chest/axilla: Normal chest wall appearance and motion. Nontender with no deformity. No lesions are appreciated. Cardiovascular: Regular rate and rhythm with a normal S1 and S2. No gallops, murmurs, or rubs. Normal PMI, no JVD. No pulse deficits. Respiratory: Lungs have equal breath sounds bilaterally, clear to auscultation and percussion. No rales, rhonchi or wheezes noted. No increased work of breathing, no retractions or nasal flaring. Abdomen/GI: Soft, non-tender, with normal bowel sounds. No distension or tympany. No guarding or rebound. No evidence of tenderness throughout. Back: No spinal tenderness. No costovertebral tenderness. Full range of motion. Skin: Warm, dry with normal turgor. Normal color with no rashes, no lesions, and no evidence of cellulitis. Neuro: Awake and alert, GCS 15, oriented to person, place, time, and situation. Cranial nerves II-XII grossly intact. Motor strength 5/5 in all extremities. Sensory grossly intact. Cerebellar exam normal. Normal gait. Psych: Awake, alert, with orientation to person, place and time. Behavior, mood, and affect are within normal limits. 19:34 Psych: Behavior/mood is anxious. Vital Signs: 19:14 BP 128 / 86; Pulse 100; Resp 17; Temp 97.8(TE); Pulse Ox 97% on R/A; Weight 66.22 kg; ss Height 5 ft. 0 in. (152.40 cm); Pain 5/10; 19:53 BP 121 / 89; Pulse 65; Resp 16; Pulse Ox 99% on R/A; mt 21:00 BP 108 / 73; Pulse 76; Resp 16; Pulse Ox 99% on R/A; jb4 19:14 Body Mass Index 28.51 (66.22 kg, 152.40 cm) ss MDM: 19:18 Patient medically screened. ma2 19:34 Differential diagnosis: anxiety, herpes zoster, Kavitha-Golden syndrome, peptic ulcer ma2 disease, pericarditis, pleurisy, pneumonia, stable angina, thoracic aortic disection, unstable angina. Differential diagnosis: gastroesophageal reflux disease (GERD), herpes zoster, stable angina, thoracic aortic disection, unstable angina, unlikely pe perc out, she has no signs of dvt her pulse is 60 now.. HEART Score: History: ECG:. MARINE Risk Score: not applicable, TOTAL SCORE = 0. 20:43 Data reviewed: vital signs, nurses notes, EMS record. Counseling: I had a detailed ma2 discussion with the patient and/or guardian regarding: the historical points, exam findings, and any diagnostic results supporting the discharge/admit diagnosis, the presence of at least one elevated blood pressure reading (>120/80) during this emergency department visit, the need for outpatient follow up. Response to treatment: the patient's symptoms have markedly improved after treatment. 20:43 ED course: discussed with the oncologist will send her home workup unremarkable, no sob ma2 spo2 100 on ra no sob, pulse 60s, pain resolved PE perc negative . 08/08 19:29 Order name: Basic Metabolic Panel; Complete Time: 20:31 ma2 08/08 19:29 Order name: CBC with Diff; Complete Time: 20:39 ma2 08/08 19:29 Order name: LFT's; Complete Time: 20:31 ma2 08/08 19:29 Order name: Magnesium; Complete Time: 20:31 ma2 08/08 19:29 Order name: NT PRO-BNP; Complete Time: 20:31 ma2 08/08 19:29 Order name: PT-INR; Complete Time: 20:31 ma2 08/08 19:16 Order name: EKG; Complete Time: 19:17 ss 08/08 19:29 Order name: Troponin (emerg Dept Use Only); Complete Time: 20:31 ma2 08/08 19:29 Order name: XRAY Chest (1 view); Complete Time: 20:03 ma2 08/08 20:14 Order name: CBC Smear Scan; Complete Time: 20:39 EDMS 08/08 19:16 Order name: EKG - Nurse/Tech; Complete Time: 19:36 ss 08/08 19:29 Order name: Cardiac monitoring; Complete Time: 19:36 ma2 08/08 19:29 Order name: IV Saline Lock; Complete Time: 19:36 ma2 08/08 19:29 Order name: Labs collected and sent; Complete Time: 19:36 ma2 08/08 19:29 Order name: O2 Per Protocol; Complete Time: 19:36 ma2 08/08 19:29 Order name: O2 Sat Monitoring; Complete Time: 19:36 ma2 Administered Medications: 20:00 Drug: Ativan 1 mg Route: IVP; Site: left antecubital; jb4 20:30 Follow up: Response: No adverse reaction; Pain is decreased; Anxiety decreased jb4 20:00 Drug: NS 0.9% 1000 ml Route: IV; Rate: 1 bolus; Site: left antecubital; jb4 21:00 Follow up: Response: No adverse reaction; IV Status: Completed infusion jb4 21:10 Drug: Reglan 10 mg Route: IVP; Site: left antecubital; jb4 21:11 Follow up: Response: No adverse reaction jb4 21:10 Drug: Tylenol 1000 mg Route: PO; jb4 21:10 Follow up: Response: No adverse reaction jb4 Disposition: 08/08/18 20:45 Discharged to Home. Impression: Anxiety disorder, unspecified. - Condition is Stable. - Discharge Instructions: Generalized Anxiety Disorder. - Prescriptions for Ativan 1 mg Oral Tablet - take 1 tablet by ORAL route every 8 hours As needed; 20 tablet. - Medication Reconciliation Form, Thank You Letter, Antibiotic Education, Prescription Opioid Use form. - Follow up: Private Physician; When: Tomorrow; Reason: Continuance of care. Signatures: Dispatcher [employer] EDAlina Francis RN RN Rex Montemayor RN RN jb4 Edmond Chirinos MD MD ma2 Corrections: (The following items were deleted from the chart) 21:14 20:45 08/08/2018 20:45 Discharged to Home. Impression: Anxiety disorder, unspecified. jb4 Condition is Stable. Forms are Medication Reconciliation Form, Thank You Letter, Antibiotic Education, Prescription Opioid Use. Follow up: Private Physician; When: Tomorrow; Reason: Continuance of care. ma2
[2018-08-08] MEDS ORDERED: METOCLOPRAMIDE 10 MG/2mL INJ ONE (20:56)
[2018-08-08] MEDS ORDERED: ACETAMINOPHEN 500 MG TAB ONE (20:57)
[2018-08-08 23:40] VITALS: TEMP 97.8
[2018-08-08 23:42] VITALS: O2SAT 99
[2018-08-08 23:43] VITALS: BP 108/73
[2018-08-09] MEDS ORDERED: WATER FOR INJ,STERILE 10 ML ONE (18:23)
--- NOTE | 2018-08-10 06:09 | EKG ---
Test Date: 2018-08-08 Test Time: 19:27:01 Utilization Reviewer: JOSE MEASUREMENT RESULTS: Intervals: Rate: 65 MN: 132 QRSD: 82 QT: 384 QTc: 399 [place] R[place]ter: P: 59 MN: 132 QRS: 27 T: 17 INTERPRETIVE STATEMENTS: Normal sinus rhythm Normal ECG No previous ECG available for comparison Electronically Signed On 08-10-18 06:08:32 EDUCATIONAL INTERPRETER by Nicolás Boothe
== END 2018-08-08 21:14 | disposition home or self-care (01) ==
LOC: ER 19:01
DX: F41.9 Anxiety disorder, unspecified (principal); Z88.5 Allergy status to narcotic agent; Z85.41 Personal history of malignant neoplasm of cervix uteri
CPT/HCPCS: 36415; 71045; 80048; 80076; 83735; 83880; 84484; 85025; 85610; 93005; 96361; 96374; 96375; 99284; J2765; J7030

== ENCOUNTER 2019-04-05 11:50 | Emergency (ER) | payer BC, OTHER ==
--- OUTSIDE RECORDS SUMMARY | 2019-04-05 11:52 | XMS REPORT | Clinical Summary ---
:1980 Author Organization [facility] Address [address] [place] [address] Care Team Providers Name Role Phone Pcp, [...] Pre-Admission Kyle Vanegas Testing MD Tony after 04/04/2018 Social History Tobacco Use Types Packs/Day Years [...] Not on file Implants Implanted Type Area Director Talent Device Shelf Model / Identifier Expiration Serial / Date Lot Memb Seprafilm Mariana Goodrich 5x6 4301-02 - Sn/A Cement/F Abdomen GENZYME ZIGGY : 02/23/2020 4301-02 / Implanted: Qty: 1 on 2018 by Kyle Vanegas MD iller/Ad BIO-SURG N/A / hesive [id number] Flseal Vhsd Full Strlprep 10ml [id number] - Sn/A Cement/F Abdomen LEMONS: BIOSCI 11/03/2019 [id number] / Implanted: Qty: 1 on 2018 by Kyle Vanegas MD iller/Ad N/A / hesive [id number] Memb Seprafilm Mariana Goodrich 5x6 4301-02 - Sn/A Cement/F Abdomen GENZYME IZGGY : 01/24/2020 4301-02 / Implanted: Qty: 1 on 2018 by Kyle Vanegas MD iller/Ad BIO-SURG N/A / hesive [id number] Procedures Procedure Name Priority Date/Time Associated Comments Diagnosis INTRAOPERATIVE PATH 07/14/2018 2:42 REPORT - SCAN PM ROAD CLEANER INTRAOPERATIVE PATH 07/14/2018 2:42 REPORT - SCAN PM ROAD CLEANER INTRAOPERATIVE PATH 07/14/2018 2:42 REPORT - SCAN PM ROAD CLEANER CBC W/PLT COUNT & AUTO Routine 06/12/2018 [...] (7) Routine 05/29/2018 12:46 PM CDT after 04/04/2018 Results INTRAOPERATIVE PATH REPORT - SCAN (07/14/2018 2:[address])Only the most recent of3 resultswithin the time period is included. Narrative Performed At CBC with platelet count + automated diff (06/12/2018 6:58 AM CDT)Only the most recent of3 resultswithin the time period is included. WBC 8.8 3.5 - 10.5 K/L [facility] RBC 3.61 (L) 3.93 - 5.22 M/L [facility] Hemoglobin 10.3 (L) 11.2 - 15.7 GM/DL [facility] Hematocrit 30.8 (L) 34.1 - 44.9 % [facility] MCV 85.3 79.4 - 94.8 fL [facility] MCH 28.5 25.6 - 32.2 pg [facility] MCHC 33.4 32.2 - 35.5 GM/DL [facility] RDW 14.5 (H) 11.7 - 14.4 % [facility] Platelets 212 150 - 450 K/CU MM [facility] MPV 10.2 9.4 - 12.3 fL [facility] nRBC 0 0 - 0 /100 WBC [facility] % Neutros 75 % [facility] % Lymphs 15 % [facility] % Monos 9 % [facility] % Eos 1 % [facility] % Baso 1 % [facility] # Neutros 6.60 (H) 1.56 - 6.13 K/L [facility] # Lymphs 1.30 1.18 - 3.74 K/L [facility] # Monos 0.76 (H) 0.24 - 0.36 K/L [facility] # Eos 0.11 0.04 - 0.36 K/L [facility] # Baso 0.04 0.01 - 0.08 K/L [facility] Immature Granulocytes-Relative 0 0 - 1 % [facility] Specimen Blood Performing Organization Address City/State/Zipcode Phone Number [facility] [address] [place] [address] [place] Basic Metabolic Panel (06/11/2018 4:23 AM CDT)Only the most recent of2 resultswithin the time period is included. Sodium 134 (L) 136 - 145 meq/L [facility] Potassium 4.3 3.5 - 5.1 meq/L [facility] Chloride 103 98 - 107 meq/L [facility] CO2 24 22 - 29 meq/L [facility] BUN 10 7 - 21 mg/dL [facility] Creatinine 0.73 0.57 - 1.25 mg/dL [facility] Glucose 127 (H) 70 - 105 mg/dL [facility] Calcium 8.3 (L) 8.4 - 10.2 mg/dL [facility] EGFR 90Comment: ESTIMATED GFR IS mL/min/1.73 sq m [facility] NOT ACCURATE CREATININE [facility] CENTER CLEARANCE IN PREDICTING GLOMERULAR FILTRATION RATE. ESTIMATED GFR IS NOT APPLICABLE FOR DIALYSIS PATIENTS. Specimen Blood Performing Organization Address City/State/Zipcode Phone Number [facility] [address] [place] [address] [place] Tissue Exam (2018 8:49 AM CDT) Case Report Surgical Pathology Report Case: [id number] [facility] Authorizing Provider:Kyle Vanegas, Collected: 2018 0849 [facility] Ordering Location: [facility] PERIOPERATIVE Received: 2018 0905 SERVICES Pathologist: Redd [...] A. PELVIC, LEFT, LYMPH NODE, DISSECTION: [facility] - TWO LYMPH NODES NEGATIVE FOR MALIGNANCY (0/2) [facility] B. OBTURATOR LYMPH NODE, LEFT, DISSECTION: - [...] FOR MALIGNANCY Signing Pathologist Direct Phone Line: [phone] CPT Code(s) 66838 X 4, [address] [facility] 83499 X 2 [facility] CLINICAL HISTORY Procedure is hysterectomy, abdomen [facility] Preoperative diagnosis, cancer of exocervix [facility] Salpingectomy GROSS DESCRIPTION Part A: The specimen is received in formalin labeled as "LN pelvic L" and consists of a 3.5 x 3 x 0.5 cm fibrofatty soft tissue. There is no lymph node identified grossly. The specimen is submitted entirely in cassette A1-A3. WA/pl [facility] Part B: The specimen is received fresh [...] in cassette G1-G3. WA/pl INTRAOPERATIVE CONSULTATION [facility] PART B, LEFT OBTURATOR LYMPH NODES, EXCISION: [facility] FSB1-B3 CARCINOMA (FSB1) - FSB2, FSB3: NEGATIVE FOR MALIGNANCY (0/4) Reported by Dr. Marino PART C, RIGHT PELVIC LYMPH NODE, EXCISION: - ONE FATTY LYMPH NODE, TOUCH PREP CYTOLOGY: - NEGATIVE FOR MALIGNANCY, LYMPH NODE PENDING FOR PERMANENT Reported by Dr. Marino PART D, LYMPH NODE, RIGHT OBTURATOR, FROZEN SECTION FSD: - ONE LYMPH NODE 0/1, NEGATIVE FOR MALIGNANCY Reported by Dr. Marino MICROSCOPIC DESCRIPTION Performed [facility] Specimen Tissue - Lymph Node, Pelvic, Left Tissue - Structure of lymph node (body structure) Tissue - Lymph Node, Pelvic, Right Tissue - Structure of lymph node (body structure) Tissue - Lymph Node, Pelvic, Right Tissue - Structure of left fallopian tube (body structure) Tissue - Structure of right fallopian tube (body structure) Performing Organization Address [facility] Phone Number [address] [address] CENTER POCT , urine (2018 6:43 AM CDT) Test Urine, POC Negative Control line present?, POC Yes Background clear?, POC Yes UPT Cassette Lot #, POC [id number] UPT Cassette Expiration Date, POC 12/24/2019 Specimen TRANSFUSION SERVICE REPORT - SCAN (05/30/2018 6:03 PM CDT) Narrative Performed At Screen, urine (05/29/2018 12:47 PM CDT) Preg Test, Ur Negative [facility] Specimen Urine Performing Organization Address [facility] [place] [facility] Centercode Phone Number [address] [address] [phone] CENTER Type and screen, automated (05/29/2018 12:46 PM CDT) ABO/RH AUTOMATED (BEAKER) O POSITIVE [facility] Ab Scrn NEGATIVE [facility] Specimen Blood Performing Organization Address City/State/Zipcode Phone Number [place] [phone] [place] [address] after 04/04/2018 Insurance Payer Benefit Plan / Subscriber ID Type Phone Address Group BLUE CROSS/BLUE BCBS PPO POS xxxxxxxxxxxx PPO [phone] [address] [place] [address] MEDICAID - [facility] xxxxxxxxx Medicaid MEDICAID MGD STAR PLAN Contracted CARE Advance Directives For more information, please contact:[address] [phone] Code Status Date Activated Date Inactivated Comments Full Code 2018 4:26 PM 06/13/2018 1:41 PM This code status was determined by: Patient
--- OUTSIDE RECORDS SUMMARY | 2019-04-05 11:52 | XMS REPORT ---
:1980 Author Organization [facility] Address [address] [place] [address] Dr. Gamble [address] [place] [address] Care Team Providers Name Role Phone KYLE VANEGAS Unavailable Unavailable Problems This patient has no known problems. Allergies, Adverse Reactions, Alerts This patient has no known allergies or adverse reactions. Medications This patient has no known medications. Results Test Description Test Time Test Comments Text Results Atomic Results Result Comments TISSUE EXAM 2018-06-16 00:53:00 Surgical Pathology Report Case: [id number] Authorizing Provider: Kyle Vanegas, Collected: 2018 0849 Ordering Location: [facility] PERIOPERATIVE Received: 2018 0905 SERVICES Pathologist: [...] FOR MALIGNANCY Signing Pathologist Direct Phone Line: [phone] signed by Redd Marino MD on 06/16/2018 at 12:53 [id number] X 4, [id number] X [id number] X 2 Procedure is hysterectomy, abdomen Preoperative [...] PENDING FOR PERMANENT Reported by Dr. Syeda Ying, LYMPH NODE, RIGHT OBTURATOR, FROZEN SECTION FSD: - ONE LYMPH NODE 0/1, NEGATIVE FOR MALIGNANCY Reported by Dr. Castaneda CBC W/PLT COUNT & AUTO DIFFERENTIAL 2018-06-12 07:09:00 Test Item Value Reference Range Comments WHITE BLOOD CELL COUNT (BEAKER) (test oadh=337) 8.8 K/ L 3.5-10.5 RED BLOOD CELL COUNT (BEAKER) (test lxvw=729) 3.61 M/ L 3.93-5.22 HEMOGLOBIN (BEAKER) (test clfy=209) 10.3 GM/DL 11.2-15.7 HEMATOCRIT (BEAKER) (test ctbg=700) 30.8 % 34.1-44.9 MEAN CORPUSCULAR VOLUME (BEAKER) (test hias=869) 85.3 fL 79.4-94.8 MEAN CORPUSCULAR HEMOGLOBIN (BEAKER) (test eopn=406) 28.5 pg 25.6-32.2 MEAN CORPUSCULAR HEMOGLOBIN CONC (BEAKER) (test lsia=761) 33.4 GM/DL 32.2- 35.5 RED CELL DISTRIBUTION WIDTH (BEAKER) (test xway=873) 14.5 % 11.7-14.4 PLATELET COUNT (BEAKER) (test cnqu=840) 212 K/CU MM 150-450 MEAN PLATELET VOLUME (BEAKER) (test cxxj=996) 10.2 fL 9.4-12.3 NUCLEATED RED BLOOD CELLS (BEAKER) (test gyri=335) 0 /100 WBC 0-0 NEUTROPHILS RELATIVE PERCENT (BEAKER) (test qisn=281) 75 % LYMPHOCYTES RELATIVE PERCENT (BEAKER) (test pgly=124) 15 % MONOCYTES RELATIVE PERCENT (BEAKER) (test qspi=848) 9 % EOSINOPHILS RELATIVE PERCENT (BEAKER) (test sonn=589) 1 % BASOPHILS RELATIVE PERCENT (BEAKER) (test dcmd=784) 1 % NEUTROPHILS ABSOLUTE COUNT (BEAKER) (test hmsy=611) 6.60 K/ L 1.56-6.13 LYMPHOCYTES ABSOLUTE COUNT (BEAKER) (test dhou=389) 1.30 K/ L 1.18-3.74 MONOCYTES ABSOLUTE COUNT (BEAKER) (test nmew=292) 0.76 K/ L 0.24-0.36 EOSINOPHILS ABSOLUTE COUNT (BEAKER) (test winy=825) 0.11 K/ L 0.04-0.36 BASOPHILS ABSOLUTE COUNT (BEAKER) (test igdl=429) 0.04 K/ L 0.01-0.08 IMMATURE GRANULOCYTES-RELATIVE PERCENT (BEAKER) (test 0 % 0-1 erer=9444) BASIC METABOLIC [id number] 05:09:00 Test Item Value Reference Range Comments SODIUM (BEAKER) (test 134 meq/L 136-145 enrx=783) POTASSIUM (BEAKER) (test 4.3 meq/L 3.5-5.1 qyqu=734) CHLORIDE (BEAKER) (test 103 meq/L 98-107 aqku=831) CO2 (BEAKER) (test 24 meq/L 22-29 fimh=731) BLOOD UREA NITROGEN 10 mg/dL 7-21 (BEAKER) (test ehyy=461) CREATININE (BEAKER) (test 0.73 mg/dL 0.57-1.25 abis=833) GLUCOSE RANDOM (BEAKER) 127 mg/dL 70-105 (test owvv=449) CALCIUM (BEAKER) (test 8.3 mg/dL 8.4-10.2 whvc=295) EGFR (BEAKER) (test 90 mL/min/1.73 sq m ESTIMATED GFR IS NOT vrpy=8833) ACCURATE CREATININE CLEARANCE IN PREDICTING GLOMERULAR FILTRATION RATE. ESTIMATED GFR IS NOT APPLICABLE FOR DIALYSIS PATIENTS. CBC W/PLT COUNT & AUTO [id number] 04:57:00 Test Item Value Reference Range Comments WHITE BLOOD CELL COUNT (BEAKER) (test uguv=733) 13.4 K/ L 3.5-10.5 RED BLOOD CELL COUNT (BEAKER) (test dmyi=238) 4.27 M/ L 3.93-5.22 HEMOGLOBIN (BEAKER) (test vnjr=240) 11.8 GM/DL 11.2-15.7 HEMATOCRIT (BEAKER) (test gegx=757) 36.9 % 34.1-44.9 MEAN CORPUSCULAR VOLUME (BEAKER) (test aprd=649) 86.4 fL 79.4-94.8 MEAN CORPUSCULAR HEMOGLOBIN (BEAKER) (test 27.6 pg 25.6-32.2 cail=636) MEAN CORPUSCULAR HEMOGLOBIN CONC (BEAKER) (test 32.0 GM/DL 32.2-35.5 xejh=581) RED CELL DISTRIBUTION WIDTH (BEAKER) (test 14.5 % 11.7-14.4 qyeh=599) PLATELET COUNT (BEAKER) (test jrjl=395) 277 K/CU MM 150-450 MEAN PLATELET VOLUME (BEAKER) (test csjw=454) 10.2 fL 9.4-12.3 NUCLEATED RED BLOOD CELLS (BEAKER) (test 0 /100 WBC 0-0 muoy=651) NEUTROPHILS RELATIVE PERCENT (BEAKER) (test 79 % fipl=341) LYMPHOCYTES RELATIVE PERCENT (BEAKER) (test 13 % kcmr=546) MONOCYTES RELATIVE PERCENT (BEAKER) (test 8 % lrsy=893) EOSINOPHILS RELATIVE PERCENT (BEAKER) (test 0 % gipl=023) BASOPHILS RELATIVE PERCENT (BEAKER) (test 0 % jbmv=287) NEUTROPHILS ABSOLUTE COUNT (BEAKER) (test 10.56 K/ L 1.56-6.13 ugdu=676) LYMPHOCYTES ABSOLUTE COUNT (BEAKER) (test 1.67 K/ L 1.18-3.74 ynnt=970) MONOCYTES ABSOLUTE COUNT (BEAKER) (test 1.05 K/ L 0.24-0.36 nejf=513) EOSINOPHILS ABSOLUTE COUNT (BEAKER) (test 0.02 K/ L 0.04-0.36 ytsy=306) BASOPHILS ABSOLUTE COUNT (BEAKER) (test 0.05 K/ L 0.01-0.08 wvbf=226) IMMATURE GRANULOCYTES-RELATIVE PERCENT (BEAKER) 0 % 0-1 (test grtn=4370) BASIC METABOLIC [id number] 13:20:00 Test Item Value Reference Range Comments SODIUM (BEAKER) (test 142 meq/L 136-145 ulji=609) POTASSIUM (BEAKER) (test 3.5 meq/L 3.5-5.1 jrmc=726) CHLORIDE (BEAKER) (test 107 meq/L 98-107 bmsn=401) CO2 (BEAKER) (test 31 meq/L 22-29 zqtz=756) BLOOD UREA NITROGEN 10 mg/dL 7-21 (BEAKER) (test kdcb=337) CREATININE (BEAKER) (test 0.81 mg/dL 0.57-1.25 rvcy=392) GLUCOSE RANDOM (BEAKER) 96 mg/dL 70-105 (test pduk=289) CALCIUM (BEAKER) (test 9.4 mg/dL 8.4-10.2 jios=394) EGFR (BEAKER) (test 80 mL/min/1.73 sq m ESTIMATED GFR IS NOT iriy=3135) ACCURATE CREATININE CLEARANCE IN PREDICTING GLOMERULAR FILTRATION RATE. ESTIMATED GFR IS NOT APPLICABLE FOR DIALYSIS PATIENTS. SCREEN, [id number] 13:17:00 Test Item Value Reference Range Comments TEST URINE (BEAKER) (test fwlb=095) Negative CBC W/PLT COUNT & AUTO [id number] 13:06:00 Test Item Value Reference Range Comments WHITE BLOOD CELL COUNT (BEAKER) (test psab=940) 7.5 K/ L 3.5-10.5 RED BLOOD CELL COUNT (BEAKER) (test bcqy=315) 4.45 M/ L 3.93-5.22 HEMOGLOBIN (BEAKER) (test emhw=126) 12.3 GM/DL 11.2-15.7 HEMATOCRIT (BEAKER) (test updf=144) 37.5 % 34.1-44.9 MEAN CORPUSCULAR VOLUME (BEAKER) (test urhu=844) 84.3 fL 79.4-94.8 MEAN CORPUSCULAR HEMOGLOBIN (BEAKER) (test 27.6 pg 25.6-32.2 bouc=799) MEAN CORPUSCULAR HEMOGLOBIN CONC (BEAKER) (test 32.8 GM/DL 32.2-35.5 rmio=098) RED CELL DISTRIBUTION WIDTH (BEAKER) (test 14.1 % 11.7-14.4 tlsx=803) PLATELET COUNT (BEAKER) (test scsx=703) 283 K/CU MM 150-450 MEAN PLATELET VOLUME (BEAKER) (test hbdo=922) 10.0 fL 9.4-12.3 NUCLEATED RED BLOOD CELLS (BEAKER) (test 0 /100 WBC 0-0 xvfv=281) NEUTROPHILS RELATIVE PERCENT (BEAKER) (test 61 % tplo=276) LYMPHOCYTES RELATIVE PERCENT (BEAKER) (test 25 % nonh=641) MONOCYTES RELATIVE PERCENT (BEAKER) (test 10 % ujuk=415) EOSINOPHILS RELATIVE PERCENT (BEAKER) (test 4 % nvqx=375) BASOPHILS RELATIVE PERCENT (BEAKER) (test 1 % qbbm=100) NEUTROPHILS ABSOLUTE COUNT (BEAKER) (test 4.56 K/ L 1.56-6.13 tuyj=496) LYMPHOCYTES ABSOLUTE COUNT (BEAKER) (test 1.84 K/ L 1.18-3.74 gttc=227) MONOCYTES ABSOLUTE COUNT (BEAKER) (test 0.72 K/ L 0.24-0.36 dzjz=225) EOSINOPHILS ABSOLUTE COUNT (BEAKER) (test 0.32 K/ L 0.04-0.36 fuow=136) BASOPHILS ABSOLUTE COUNT (BEAKER) (test 0.06 K/ L 0.01-0.08 ytkz=048) IMMATURE GRANULOCYTES-RELATIVE PERCENT (BEAKER) 0 % 0-1 (test brco=1785)
--- OUTSIDE RECORDS SUMMARY | 2019-04-05 11:52 | XMS REPORT | Clinical Summary ---
:1980 Author Organization [facility] Address [address] [place] [address] Care Team Providers Name Role Phone Asked, No Pcp Primary Care Provider Unavailable Allergies Active Allergy Reactions Severity Noted Date Comments Morphine Itching 09/19/2018 Medications Medication Sig Dispensed Refills Start Date End Date Status pseudoepHEDrine Take 30 mg by 0 Active (SUDAFED) 30 MG mouth every 4 tablet (four) hours as needed for congestion. aspirin-acetaminophen Take 1 tablet 0 Active -caffeine (EXCEDRIN by mouth every MIGRAINE) 250-250-65 6 (six) hours mg per tablet as needed for headaches. phenazopyridine HCl Take by mouth 0 Active (AZO ORAL) as needed. guaifenesin/dextromet Take by mouth 0 Discontinued horphan (MUCINEX DM 2 (two) times 9 ORAL) a day. azithromycin Take 250 mg by 0 Discontinued (ZITHROMAX) 250 MG mouth daily. 9 tablet Take 2 tablets the first day, then 1 tablet daily for 4 days. ondansetron ODT Take 1 tablet 30 tablet 0 09/24/2018 (ZOFRAN-ODT) 4 MG (4 mg total) 9 disintegrating tablet by mouth every 4 (four) hours as needed for nausea or vomiting for up to 30 days. HYDROcodone-acetamino Take 1 tablet 21 tablet 0 09/24/2018 phen (NORCO) 5-325 mg by mouth every 9 per tablet 8 (eight) hours as needed for moderate pain for up to 7 days. Max Daily Amount: 3 tablets levoFLOXacin Take 1 tablet 9 tablet 0 09/24/2018 (LEVAQUIN) 500 MG (500 mg total) 9 tablet by mouth daily for 9 days. Active Problems Problem Noted Date Cervical cancer 09/22/2018 Encounters Date Type Specialty Care Team Description 11/10/2018 Office Visit Gynecologic Owen Garrett Malignant neoplasm Oncology MD Lexis of exocervix ([facility]) Bessy Louieuj 09/22/2018 Hospital Encounter Radiology Damian Boyd Malignant neoplasm MD Nicolás of endocervix ([facility]) 09/22/2018 Hospital Encounter Radiation Oncology Damian Boyd MD 09/22/2018 Anesthesia Event Obstetrics and Montoya Pasquale, Gynecology Elinor, CONTINUOUS WELD [employer] SUPER[employer]OR 09/22/2018 Surgery Obstetrics and Damian Boyd TANDEM AND OVOID Gynecology MD Nicolás 09/22/2018 - Hospital Encounter Obstetrics and Damian Boyd Malignant neoplasm 09/24/2018 Gynecology MD Nicolás of cervix, Henry, Vijay, unspecified site ([facility]) (Primary Dx) Owen Nowak MD 09/19/2018 Pre-Admit Testing Pre-Admission Damian Boyd Preop examination Appointment Testing MD Nicolás (Primary Dx) 09/02/2018 Social Work Oncology [place] [facility] 08/22/2018 Social Work Oncology [place] [facility] 08/15/2018 Social Work Oncology [place] [facility] 08/13/2018 Oncology Radiation Oncology Johnny, Malignant neoplasm Survivorship NORA Castellano of endocervix ([facility]) (Primary Dx) 08/13/2018 Orders Only Radiation Oncology Damian Boyd Malignant neoplasm MD Nicolás of endocervix ([facility]) (Primary Dx) 07/26/2018 Hospital Encounter Radiation Oncology Damian Boyd MD after 04/04/2018 Family History Medical History Relation Name Comments Lung cancer Maternal Aunt Brain cancer Maternal Grandmother Relation Name Status Comments Maternal Aunt Maternal Grandmother Social History Tobacco Use Types Packs/Day Years Used Date Never Smoker Smokeless Tobacco: Never Used Alcohol Use Drinks/Week oz/Week Comments No Alcohol Habits Answer Date Recorded How often do you have a drink containing alcohol? Never 09/19/2018 How many drinks containing alcohol do you have on a typical Not asked day when you are drinking? How often do you have six or more drinks on one occasion? Not asked Sex Assigned at Date Recorded Not on file Job Start Date Occupation Industry Not on file Not on file Not on file Travel History Travel Start Travel End No recent travel history available. Last Filed Vital Signs Vital Sign Reading Time Taken Blood Pressure 94/64 11/10/2018 9:06 AM CDT Pulse 90 11/10/2018 9:06 AM CDT Temperature 36.2 C (97.1 F) 09/24/2018 4:36 PM PACKAGING ASSOCIATE Respiratory Rate 17 09/24/2018 4:36 PM PACKAGING ASSOCIATE Oxygen Saturation 98% 09/24/2018 4:36 PM PACKAGING ASSOCIATE Inhaled Oxygen Concentration - - Weight 64.4 kg (142 lb) 11/10/2018 9:06 AM CDT Height 152.4 cm (5') 11/10/2018 9:06 AM CDT Body Mass Index 27.73 11/10/2018 9:06 AM CDT Plan of Treatment Health Maintenance Due Date Last Done Comments INFLUENZA VACCINE 03/26/2019 Procedures Procedure Name Priority Date/Time Associated Comments Diagnosis SMEAR REVIEW Routine 09/24/2018 4:50 Results for this AM PACKAGING ASSOCIATE procedure are in the results section. ESTIMATED GFR Routine 09/24/2018 4:50 Results for this AM PACKAGING ASSOCIATE procedure are in the results section. PHOSPHORUS LEVEL Routine 09/24/2018 4:50 Results for this AM PACKAGING ASSOCIATE procedure are in the results section. MAGNESIUM LEVEL Routine 09/24/2018 4:50 Results for this AM PACKAGING ASSOCIATE procedure are in the results section. HC COMPLETE BLD COUNT Routine 09/24/2018 4:50 Results for this W/AUTO DIFF AM PACKAGING ASSOCIATE procedure are in the results section. BASIC METABOLIC PANEL Routine 09/24/2018 4:50 Results for this AM PACKAGING ASSOCIATE procedure are in the results section. TOTAL IRON BINDING Routine 09/24/2018 4:50 Results for this CAPACITY AM PACKAGING ASSOCIATE procedure are in the results section. FERRITIN LEVEL Routine 09/24/2018 4:50 Results for this AM PACKAGING ASSOCIATE procedure are in the results section. URINALYSIS, AUTOMATED Routine 09/24/2018 4:50 Results for this WITH MICROSCOPY AM PACKAGING ASSOCIATE procedure are in the results section. ESTIMATED GFR Routine 09/23/2018 4:47 Results for this AM PACKAGING ASSOCIATE procedure are in the results section. LIPID PANEL Routine 09/23/2018 4:47 Results for this AM PACKAGING ASSOCIATE procedure are in the results section. HEMOGLOBIN A1C Routine 09/23/2018 4:47 Results for this AM PACKAGING ASSOCIATE procedure are in the results section. T4, FREE Routine 09/23/2018 4:47 Results for this AM PACKAGING ASSOCIATE procedure are in the results section. THYROID STIMULATING Routine 09/23/2018 4:47 Results for this HORMONE AM PACKAGING ASSOCIATE procedure are in the results section. PHOSPHORUS LEVEL Routine 09/23/2018 4:47 Results for this AM PACKAGING ASSOCIATE procedure are in the results section. MAGNESIUM LEVEL Routine 09/23/2018 4:47 Results for this AM PACKAGING ASSOCIATE procedure are in the results section. BASIC METABOLIC PANEL Routine 09/23/2018 4:47 Results for this AM PACKAGING ASSOCIATE procedure are in the results section. CBC HEMOGRAM Routine 09/23/2018 4:47 Results for this AM PACKAGING ASSOCIATE procedure are in the results section. URINALYSIS SCREEN AND Routine 09/22/2018 8:55 Results for this MICROSCOPY, WITH PM PACKAGING ASSOCIATE procedure are in REFLEX TO CULTURE the results section. URINE CULTURE Routine 09/22/2018 8:50 Results for this PM PACKAGING ASSOCIATE procedure are in the results section. MRI PELVIS WO Routine 09/22/2018 11:40 Malignant neoplasm Results for this CONTRAST AM PACKAGING ASSOCIATE of endocervix (HCC) procedure are in the results section. IN AN ELECTIVE Routine 09/22/2018 8:56 SUPRAGLOTTIC AIRWAY AM PACKAGING ASSOCIATE Procedure Note - Edith Valdes CRNA - 09/22/2018 8:56 AM PACKAGING ASSOCIATE ANESTHESIA INTUBATION Date/Time: 09/22/2018 8:46 AM Performed by: Edith Valdes CRNA Authorized by: Susana Ozuna MD Location: OR Urgency: Elective Difficult Airway: No Anesthesiologist: Susana Ozuna MD Resident/ESTATE PLANNING DIRECTOR/AA: Edith Valdes CRNA Performed by: resident/ESTATE PLANNING DIRECTOR/AA Preoxygenated with 100% O2: Yes Mask Ventilation: Easy mask Final Airway Type: Supraglottic airway Final LMA: Ambu LMA Size: 4 Number of Attempts at Approach: 1 Eyes taped immediately after LOC; Easy mask ventilation; Atraumatic LMA insertion; (+) chest rise& ETCO2; oral structures intact as per pre op CESIUM IMPLANT (T&O) 09/22/2018 8:30 AM PACKAGING ASSOCIATE Malignant neoplasm of endocervix (HCC) Case Notes RADIATION PRECAUTIONS AND HOVER MAT Special Needs RADIATION PRECAUTIONS AND HOVER MAT URINE CULTURE Routine 09/19/2018 1:15 PM Results for this PACKAGING ASSOCIATE procedure are in the results section. GRAM STAIN Routine 09/19/2018 1:15 PM Results for this PACKAGING ASSOCIATE procedure are in the results section. HCG QUALITATIVE, URINE Routine 09/19/2018 11:20 AM Preop examination Results for this SCREEN PACKAGING ASSOCIATE procedure are in the results section. ESTIMATED GFR Routine 09/19/2018 11:17 AM Results for this PACKAGING ASSOCIATE procedure are in the results section. CBC HEMOGRAM Routine 09/19/2018 11:17 AM Preop examination Results for this PACKAGING ASSOCIATE procedure are in the results section. COMPREHENSIVE Routine 09/19/2018 11:17 AM Preop examination Results for this METABOLIC PANEL PACKAGING ASSOCIATE procedure are in the results section. URINALYSIS SCREEN AND Routine 09/19/2018 11:17 AM Preop examination Results for this MICROSCOPY, WITH PACKAGING ASSOCIATE procedure are in REFLEX TO CULTURE the results section. after 04/04/2018 Results Smear review (09/24/2018 4:50 AM PACKAGING ASSOCIATE) Platelet slide review Decreased (A) [facility] Anisocytosis Moderate [facility] Polychromasia Moderate [facility] Ovalocytes Moderate [facility] Specimen Performing Organization Address City/[facility] Cent[facility]ode Phone Number [facility] DEPARTMENT OF PATHOLOGY AND [address] [place] [phone] Estimated GFR (09/24/2018 4:50 AM PACKAGING ASSOCIATE)Only the most recent of3 resultswithin the time period is included. Pathologist [facility] Estimated GFR >=90 mL/min/1.73 [facility] Comment: HOSPITAL CatergoryUnitsInterpretation G1 >=90 Normal or high G2 60-89Mildly decreased [id number] to moderately decreased G2u18-19Mwyzbgvjrr to severely decreased G4 15-29Severely decreased G5 <15Kidney failure The eGFR was calculated using the Chronic Kidney Disease Epidemiology Collaboration (CKD-EPI) equation. Interpretation is based on recommendations of the National Kidney Foundation-Kidney Disease Outcomes Quality Initiative (NKF-KDOQI) published in 2014. Specimen Plasma specimen Performing Organization Address City/[facility]/Zipcode Phone Number [facility] DEPARTMENT OF PATHOLOGY AND [address] [place] [phone] Total iron binding capacity (09/24/2018 4:50 AM PACKAGING ASSOCIATE) Iron level 87 37 - 145 ug/dL [facility] Iron binding capacity 207 200 - 400 ug/dL [facility] % Saturation 42.0 (H) 15.0 - 38.0 % [facility] Specimen Plasma specimen Performing Organization Address City/[facility]/Zipcode Phone Number [facility] DEPARTMENT OF PATHOLOGY AND [address] [place] [address] Urinalysis, automated with microscopy (09/24/2018 4:50 AM PACKAGING ASSOCIATE) Color, UA Yellow [facility] Appearance, UA Clear [facility] Specific gravity, 1.014 1.001 - 1.035 [facility] pH, UA 5.0 5.0 - 8.5 [facility] Protein, UA Negative Negative [facility] Glucose, UA Negative Negative [facility] Ketones, UA Negative Negative [facility] Bilirubin, UA Negative Negative [facility] Blood, UA Negative Negative [facility] Nitrite, UA Positive Negative [facility] (A)Comment: HOSPITAL Results double checked. Urobilinogen, UA <2.0 <2.0 [facility] Leukocyte Negative Negative [facility] esterase, HOSPITAL WBC, UA 1 0 - 4 /HPF [facility] RBC, UA None seen 0 - 5 /HPF [facility] Bacteria, UA Few None seen [facility] Hyaline casts, UA 4 /LPF [facility] Yeast, UA None seen [facility] Yeast with None seen [facility] pseudohyphae, [facility] Specimen Urine Performing Organization Address City/[facility] Cent[facility]ode Phone Number [facility] DEPARTMENT OF PATHOLOGY AND [address] [place] [address] CBC with platelet and differential (09/24/2018 4:50 AM PACKAGING ASSOCIATE) WBC 1.64 (L) 4.50 - 11.00 [facility] RBC 2.72 (L) 4.20 - 5.50 [facility] HGB 8.0 (L) 12.0 - 16.0 [facility] g/dL [facility] HCT 24.0 (L) 37.0 - 47.0 % [facility] MCV 88.2 82.0 - 100.0 [facility] MCH 29.4 27.0 - 34.0 pg [facility] MCHC 33.3 31.0 - 37.0 [facility] g/dL [facility] RDW - SD 70.0 (H) 37.0 - 55.0 fL [facility] MPV 9.4 8.8 - 13.2 fL [facility] Platelet count 107 (L) 150 - 400 k/uL [facility] Nucleated RBC 0.00 /100 WBC [facility] Neutrophils 53.6 39.0 - 69.0 % [facility] Lymphocytes 23.8 (L) 25.0 - 45.0 % [facility] Monocytes 17.1 (H) 0.0 - 10.0 % [facility] Eosinophils 4.3 0.0 - 5.0 % [facility] Basophils 0.6 0.0 - 1.0 % [facility] Immature granulocytes 0.6Comment: 0.0 - 1.0 % [facility] "[facility] granulocytes" (promyelocytes , myelocytes, metamyelocytes ) Specimen Blood Performing Organization Address City/[facility] Phone Number [facility] DEPARTMENT OF PATHOLOGY AND [address] [place] [phone] Phosphorus level (09/24/2018 4:50 AM PACKAGING ASSOCIATE)Only the most recent of2 resultswithin the time period is included. Phosphorus 4.2 2.4 - 4.5 mg/dL [facility] Specimen Plasma specimen Performing Organization Address City/[facility] Phone Number [facility] DEPARTMENT OF PATHOLOGY AND [address] [place] [phone] Magnesium level (09/24/2018 4:50 AM PACKAGING ASSOCIATE)Only the most recent of2 resultswithin the time period is included. Magnesium 1.9 1.6 - 2.6 mg/dL [facility] Specimen Plasma specimen Performing Organization Address City/[facility] Phone Number [facility] DEPARTMENT OF PATHOLOGY AND [address] [place] [phone] Ferritin level (09/24/2018 4:50 AM PACKAGING ASSOCIATE) Ferritin level 77 13 - 150 ng/mL [facility] Specimen Plasma specimen Performing Organization Address City/[facility] Centercode Phone Number [facility] DEPARTMENT OF PATHOLOGY AND [address] [place] [phone] [place] [phone] Basic metabolic panel (09/24/2018 4:50 AM PACKAGING ASSOCIATE)Only the most recent of2 resultswithin the time period is included. Sodium 140 135 - 148 mEq/L [facility] Potassium 3.6 3.5 - 5.0 mEq/L [facility] Chloride 104 98 - 112 mEq/L [facility] CO2 28 24 - 31 mEq/L [facility] Anion gap 8@ANIO 7 - 15 mEq/L [facility] BUN 7 6 - 20 mg/dL [facility] Creatinine 0.68 0.50 - 0.90 mg/dL [facility] Glucose 88 65 - 99 mg/dL [facility] Calcium 8.0 (L) 8.3 - 10.2 mg/dL [facility] Specimen Plasma specimen Performing Organization Address [facility] Centercode Phone Number [facility] DEPARTMENT OF PATHOLOGY AND [address] [place] [phone] CBC hemogram (09/23/2018 4:47 AM PACKAGING ASSOCIATE)Only the most recent of2 resultswithin the time period is included. WBC 2.08 (L) 4.50 - 11.00 k/uL [facility] RBC 2.90 (L) 4.20 - 5.50 m/uL [facility] HGB 8.5 (L) 12.0 - 16.0 g/dL [facility] HCT 25.3 (L) 37.0 - 47.0 % [facility] MCV 87.2 82.0 - 100.0 fL [facility] MCH 29.3 27.0 - 34.0 pg [facility] MCHC 33.6 31.0 - 37.0 g/dL [facility] RDW - SD 66.8 (H) 37.0 - 55.0 fL [facility] MPV 9.5 8.8 - 13.2 fL [facility] Platelet count 125 (L) 150 - 400 k/uL [facility] Nucleated RBC 0.00 /100 WBC [facility] Specimen Blood Performing Organization Address City/[facility] Centercode Phone Number [facility] DEPARTMENT OF PATHOLOGY AND [address] [place] [phone] [place] [phone] Thyroid stimulating hormone (09/23/2018 4:47 AM PACKAGING ASSOCIATE) TSH 1.37 0.27 - 4.20 uIU/mL [facility] Specimen Plasma specimen Performing Organization Address City/[facility] Centercode Phone Number [facility] DEPARTMENT OF PATHOLOGY AND [address] [place] [phone] T4, free (09/23/2018 4:47 AM PACKAGING ASSOCIATE) T4, free 1.1 0.9 - 1.7 ng/dL [facility] Specimen Plasma specimen Performing Organization Address [facility] Phone Number [facility] DEPARTMENT OF PATHOLOGY AND [address] [place] [phone] Hemoglobin A1c (09/23/2018 4:47 AM PACKAGING ASSOCIATE) Hemoglobin A1C 5.3 4.0 - 5.6 % [facility] Comment: HOSPITAL HbA1c cutoffs for diagnosing diabetes: 4.0% - 5.6%=normal 5.7% - 6.4%=increased risk for diabetes (prediabetes) >=6.5%=diabetes Goals for glycemic control (ADA 2016) < 7.0%Target for non adults with diabetes. More or less stringent targets may be appropriate for individual patients. <7.5% Target for Children and adolescents with type 1 diabetes. Specimen Blood Performing Organization Address [facility] Centercode Phone Number [facility] DEPARTMENT OF PATHOLOGY AND [address] [place] [phone] Lipid panel (09/23/2018 4:47 AM PACKAGING ASSOCIATE) Cholesterol 159 <200 mg/dL [facility] Triglycerides 81 <150 mg/dL [facility] HDL cholesterol 52 >40 mg/dL [facility] LDL cholesterol 103 (H)Comment: <100 mg/dL [place] Result obtained by [facility] direct [facility] measurement Lipid panel [facility] interpretation Comment: [facility] Total Cholesterol (mg/dL) HOSPITAL <200 Desirable [id number]-ygri >=240High Triglycerides (mg/dL) <150 Normal 400-344Jewmbdzppe-mrvy 200-499High >=500Very high HDL Cholesterol (mg/dL) <40Low (male) <40Low (female) LDL Cholesterol (mg/dL) <100 Optimal 100-129Near or above optimal 391-053Vwdbgwgohf-apum 160-189High >=190Very high Risk Catergories that modify LDL goals. Risk CatergoriesLDL goal (mg/dL) CHD and CHD risk equivalent<100 (10-year risk >20%) Multiple (2+) risk factors <130 (10-year risk=<20%) 0-1 risk factors <160 (<10-year risk) Defining levels of lipids in metabolic syndrome Triglycerides>=150 mg/dL HDL Cholesterol Men<40 mg/dL Women<40 mg/dL Non-HDL cholesterol is a second target for therapy in persons with high triglycerides (>=200 mg/dL) Specimen Plasma specimen Performing Organization Address City/State/Zipcode Phone Number [facility] DEPARTMENT OF PATHOLOGY AND [address] [place] [address] GEN[facility] MEDICINE [address] [address] Urinalysis screen and microscopy, with reflex to culture (09/22/2018 8:55 PM PACKAGING ASSOCIATE)Only the most recent of2 resultswithin the time period is included. Specimen site Clean catch [facility] Color, UA Straw [facility] Appearance, UA Clear [facility] Specific gravity, 1.010 1.001 - 1.035 [facility] pH, UA 6.0 5.0 - 8.5 [facility] Protein, UA Negative Negative [facility] Glucose, UA Negative Negative [facility] Ketones, UA Negative Negative [facility] Bilirubin, UA Negative Negative [facility] Blood, UA Negative Negative [facility] Nitrite, UA Negative Negative [facility] Urobilinogen, UA <2.0 <2.0 [facility] Leukocyte esterase, Negative Negative [facility] WBC, UA 1 0 - 4 /HPF [facility] RBC, UA 2 0 - 5 /HPF [facility] Bacteria, UA None seen None seen [facility] Yeast, UA None seen [facility] Yeast with None seen [facility] pseudohyphae, [facility]OSPITAL Specimen Urine Performing Organization Address City/State/Zipcode Phone Number [facility] DEPARTMENT OF PATHOLOGY AND [address], [place] [phone] [place] [address] [place] [phone] Urine culture (09/22/2018 8:50 PM PACKAGING ASSOCIATE)Only the most recent of2 resultswithin the time period is included. Urine culture SEE COMMENTComment: [facility] Bacteriuria screen HOSPITAL negative. Specimen Performing Organization Address City/[facility]/Zipcode Phone Number [facility] DEPARTMENT OF PATHOLOGY AND [address], [place] [phone] [place] [address] [place] [phone] MRI Pelvis Wo Contrast (09/22/2018 11:40 AM PACKAGING ASSOCIATE) Specimen Narrative Performed At EXAMINATION:MRI PELVIS WO CONTRAST RADIANT CLINICAL HISTORY:C53.0 Malignant neoplasm of endocervix, Treatment planning for radiation therapy with after placement of brachytherapy device COMPARISON:None. TECHNIQUE: MR of the pelvis without intravenous gadolinium.Absence of contrast decreases sensitivity for detection of pelvic pathology. IMPRESSION: 1.Multiplanar T2 sequences are obtained demonstrating placement of tandem radiotherapy device with ring component surrounding the cervix. 2.The acquired sequences are limited for delineation of the primary lesion extent. No gross pelvic sidewall involvement or pelvic lymphadenopathy is seen. Heterogeneously hyperintense fullness in the vagina is unlikely to be mass and should be correlated for packing or other procedural material. 3.The uterus is mildly retroflexed. 4.Distended bladder with Oseguera catheter in place. 5.Incidental note of a unilocular 4 cm right adnexal cyst. Recommend attention on follow-up. 6.Trace free fluid is nonspecific. [facility]-[id number] Procedure Note [facility][1], Radiology Results Incoming - 09/22/2018 7:31 PM PACKAGING ASSOCIATE EXAMINATION: MRI PELVIS WO CONTRAST CLINICAL HISTORY: C53.0 Malignant neoplasm of endocervix, Treatment planning for radiation therapy with after placement of brachytherapy device COMPARISON: None. TECHNIQUE: MR of the pelvis without intravenous gadolinium. Absence of contrast decreases sensitivity for detection of pelvic pathology. IMPRESSION: 1. Multiplanar T2 sequences are obtained demonstrating placement of tandem radiotherapy device with ring component surrounding the cervix. 2. The acquired sequences are limited for delineation of the primary lesion extent. No gross pelvic sidewall involvement or pelvic lymphadenopathy is seen. Heterogeneously hyperintense fullness in the vagina is unlikely to be mass and should be correlated for packing or other procedural material. 3. The uterus is mildly retroflexed. 4. Distended bladder with Oseguera catheter in place. 5. Incidental note of a unilocular 4 cm right adnexal cyst. Recommend attention on follow-up. 6. Trace free fluid is nonspecific. [facility]-[id number] Performing Organization Address [facility] Phone Number [facility] [address] [place] [phone] Gram stain (09/19/2018 1:15 PM PACKAGING ASSOCIATE) Pathologist [facility] Gram stain result No WBC's [facility] Gram positive rods HOSPITAL Comment: Specimen Information Specimen Source: Urine Specimen Site: Clean catch Specimen Urine Performing Organization Address [facility] Phone Number [facility] OF PATHOLOG[facility] AND [address] [place] [phone] hCG qualitative, urine screen (09/19/2018 11:20 AM PACKAGING ASSOCIATE) Pathologist [facility] hCG qualitative, NegativeComment: [facility] urine Sensitivity of HCG [facility] test: 25 mIU/mL Specimen Urine Performing Organization Address [facility]opa Phone Number [facility] OF [facility] AND [address] [place] [phone] Comprehensive metabolic panel (09/19/2018 11:17 AM PACKAGING ASSOCIATE) Sodium 139 135 - 148 [facility] mEq/L [facility] Potassium 3.7 3.5 - 5.0 [facility] mEq/L [facility] Chloride 103 98 - 112 mEq/L [facility] CO2 26 24 - 31 mEq/L [facility] Anion gap 10@ANIO 7 - 15 mEq/L [facility] BUN 8 6 - 20 mg/dL [facility] Creatinine 0.63 0.50 - 0.90 [facility] mg/dL HOSPITAL Glucose 87 65 - 99 mg/dL [facility] Calcium 8.9 8.3 - 10.2 [facility] mg/dL HOSPITAL Protein 6.7 6.3 - 8.3 g/dL [facility] Comment: HOSPITAL [place] 4.6-7.0 g/dL 1 week 4.4-7.6 g/dL 7 months-1year5.1-7.3 g/dL 1-2 years5.6-7.5 g/dL >3 years6.0-8.0 g/dL 18-150 6.3-8.3 g/dL Albumin 3.5 3.5 - 5.0 g/dL [facility] A/G ratio 1.1 0.7 - 3.8 [facility] Alkaline phosphatase 95 35 - 104 U/L [facility] AST 21 10 - 35 U/L [facility] ALT 24 5 - 50 U/L [facility] Total bilirubin <0.2 0.0 - 1.2 [facility] mg/dL HOSPITAL Specimen Plasma specimen Performing Organization Address City/State/Zipcode Phone Number [facility] DEPARTMENT OF PATHOLOGY AND [address] [place] [address] GENOM[address] MEDICINE [address] [address] after 04/04/2018 Advance Directives Patient has advance care planning documents on file. For more information, please contact:[address] [address]
[2019-04-05] MEDS ORDERED: TETANUS & DIPHTHERIA TOX,ADULT 0.5 ML VIAL ONE (12:13)
[2019-04-05] MEDS ORDERED: LIDOCAINE 1% MPF 5 ML VIAL ONE (12:13)
[2019-04-05] MEDS ORDERED: BUPIVACAINE 0.5% PF 10 ML VIAL ONE (12:13)
[2019-04-05] MEDS ORDERED: HYDROCODONE/APAP 5/325 MG TAB ONE (12:13)
--- NOTE | 2019-04-05 13:08 | EDPHYS ---
Physician Documentation [facility] Name: Corinna Rosario Age: 38 yrs Sex: Female : 1980 Arrival Date: 04/05/2019 Time: 11:55 Bed 12 Private MD: ED Physician Óscar Mendez HPI: 04/05 13:10 This 38 yrs old Female presents to ER via Ambulatory with complaints of kb Toenail Problem. 13:10 The patient presents with pain, left great toenail pulled up and back. The complaints kb affect the left foot. Context: The problem was sustained at home, the patient can fully bear weight, the patient is able to ambulate. Onset: The symptoms/episode began/occurred just prior to arrival. Modifying factors: The symptoms are alleviated by nothing, the symptoms are aggravated by nothing. Associated signs and symptoms: The patient has no apparent associated signs or symptoms. Severity of symptoms: At their worst the symptoms were moderate, in the emergency department the symptoms are unchanged. The patient has not experienced similar symptoms in the past. The patient has not recently seen a physician. ACTUARIAL INTERN: 18:36 LMP N/A - iw Historical: - Allergies: 12:20 Morphine; iw - Home Meds: 12:20 None [Active]; iw - PMHx: 12:20 cervical cancer; iw - PSHx: 12:20 fallopian tubes removed and ovaries "pinned up"; iw - Immunization history:: Adult Immunizations not up to date. - Ebola Screening: : Patient negative for fever greater than or equal to 101.5 degrees Fahrenheit, and additional compatible Ebola Virus Disease symptoms Patient denies exposure to infectious person Patient denies travel to an Ebola-affected area in the 21 days before illness onset No symptoms or risks identified at this time. - Social history:: Smoking status: Patient uses tobacco products. ROS: 13:08 Constitutional: Negative for fever, chills, and weight loss, Cardiovascular: Negative kb for chest pain, palpitations, and edema, Respiratory: Negative for shortness of breath, cough, wheezing, and pleuritic chest pain, Abdomen/GI: Negative for abdominal pain, nausea, vomiting, diarrhea, and constipation, Back: Negative for injury and pain, : Negative for injury, bleeding, discharge, and swelling, Skin: Negative for injury, rash, and discoloration, Neuro: Negative for headache, weakness, numbness, tingling, and seizure. 13:08 MS/extremity: Positive for of the left first toe, nail avulsion. Exam: 13:08 Constitutional: This is a well developed, well nourished patient who is awake, alert, kb and in no acute distress. Head/Face: Normocephalic, atraumatic. Chest/axilla: Normal chest wall appearance and motion. Nontender with no deformity. No lesions are appreciated. Cardiovascular: Regular rate and rhythm with a normal S1 and S2. No gallops, murmurs, or rubs. Normal PMI, no JVD. No pulse deficits. Respiratory: Lungs have equal breath sounds bilaterally, clear to auscultation and percussion. No rales, rhonchi or wheezes noted. No increased work of breathing, no retractions or nasal flaring. Abdomen/GI: Soft, non-tender, with normal bowel sounds. No distension or tympany. No guarding or rebound. No evidence of tenderness throughout. Skin: Warm, dry with normal turgor. Normal color with no rashes, no lesions, and no evidence of cellulitis. Neuro: Awake and alert, GCS 15, oriented to person, place, time, and situation. Cranial nerves II-XII grossly intact. Motor strength 5/5 in all extremities. Sensory grossly intact. Cerebellar exam normal. Normal gait. 13:08 Musculoskeletal/extremity: Nails: partial avulsion, of the left first toe. Vital Signs: 12:15 BP 112 / 54; Pulse 70; Resp 16; Temp 98.2; Pulse Ox 100% on R/A; iw Procedures: 12:22 Nerve block: (digital) of left first toe Medication: Lidocaine 1% without epinephrine nomi Marcaine 0.5%, Amount: 4 mls were injected, Effect: the patient has resolution of the pain, Set up for procedure. Performed by Mindy CRUZ Patient tolerated well. 13:07 figure 8 suture placed to keep nail in place. nomi MDM: 12:06 Patient medically screened. [facility] 13:05 Data reviewed: vital signs, nurses notes. Data interpreted: Pulse oximetry: on room air kb is 100 %. Interpretation: normal. Counseling: I had a detailed discussion with the patient and/or guardian regarding: the historical points, exam findings, and any diagnostic results supporting the discharge/admit diagnosis, the need for outpatient follow up, a family practitioner, to return to the emergency department if symptoms worsen or persist or if there are any questions or concerns that arise at home. 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 Exp: iw 03/27/2020. Lot #: [id number]. } Route: IM; Site: left deltoid; 13:30 Follow up: Response: No adverse reaction iw Disposition: 04/06 10:04 Co-signature as Attending Physician, Óscar Mendez MD I agree with the assessment and mitchel plan of care. Disposition: 04/05/19 13:07 Discharged to Home. Impression: Unspecified open wound of left great toe with damage to nail - nail avulsion. - Condition is Stable. - Discharge Instructions: Nail Avulsion. - Medication Reconciliation Form, Thank You Letter, Antibiotic Education, Prescription Opioid Use form. - Follow up: Emergency Department; When: As needed; Reason: Worsening of condition. Follow up: Private Physician; When: 2 - 3 days; Reason: Recheck today's complaints, Continuance of care, Re-evaluation by your physician. Signatures: Mindy Linda, FRACTIONATION SUPERVISOR-C FRACTIONATION SUPERVISOR-Manojb Óscar Mendez MD MD cha Williams, Irene, RN RN Corrections: (The following items were deleted from the chart) 04/05 13:30 13:07 04/05/2019 13:07 Discharged to Home. Impression: Unspecified open wound of left iw great toe with damage to nail - nail avulsion. Condition is Stable. Forms are Medication Reconciliation Form, Thank You Letter, Antibiotic Education, Prescription Opioid Use. Follow up: Emergency Department; When: As needed; Reason: Worsening of condition. Follow up: Private Physician; When: 2 - 3 days; Reason: Recheck today's complaints, Continuance of care, Re-evaluation by your physician. kb
--- NOTE | 2019-04-05 13:08 | ER ---
Nurse's Notes [facility] Name: Corinna Rosario Age: 38 yrs Sex: Female : 1980 Arrival Date: 04/05/2019 Time: 11:55 Bed 12 Private MD: Diagnosis: Unspecified open wound of left great toe with damage to nail-nail avulsion Presentation: 04/05 12:05 Presenting complaint: Patient states: hit left great toe against dresser, avulsion of iw toenail. Transition of care: patient was not received from another setting of care. Onset of symptoms was April 05, 2019. Risk Assessment: Do you want to hurt yourself or someone else? Patient reports no desire to harm self or others. Initial Sepsis Screen: Does the patient meet any 2 criteria? No. Patient's initial sepsis screen is negative. Does the patient have a suspected source of infection? No. Patient's initial sepsis screen is negative. Care prior to arrival: None. 12:05 Method Of Arrival: Ambulatory iw 12:05 Acuity: EBONI 4 iw Triage Assessment: 13:00 General: Appears in no apparent distress. Behavior is calm. iw [facility]: 18:36 LMP N/A - iw Historical: - Allergies: 12:20 Morphine; iw - Home Meds: 12:20 None [Active]; iw - PMHx: 12:20 cervical cancer; iw - PSHx: 12:20 fallopian tubes removed and ovaries "pinned up"; iw - Immunization history:: Adult Immunizations not up to date. - Ebola Screening: : Patient negative for fever greater than or equal to 101.5 degrees Fahrenheit, and additional compatible Ebola Virus Disease symptoms Patient denies exposure to infectious person Patient denies travel to an Ebola-affected area in the 21 days before illness onset No symptoms or risks identified at this time. - Social history:: Smoking status: Patient uses tobacco products. Screenin:20 Abuse screen: Denies threats or abuse. Denies injuries from another. Nutritional iw screening: No deficits noted. Tuberculosis screening: No symptoms or risk factors identified. Fall Risk None identified. Assessment: 13:00 General: Appears in no apparent distress. Behavior is calm, cooperative. Pain: iw Complains of pain in left first toe. Neuro: Level of Consciousness is awake, alert, obeys commands, Moves all extremities. Full function. Cardiovascular: Patient's skin is warm and dry. Musculoskeletal: Range of motion: intact in all extremities. Injury Description: Avulsion sustained to left first toe is partial was sustained 1-2 hours ago. Vital Signs: 12:15 BP 112 / 54; Pulse 70; Resp 16; Temp 98.2; Pulse Ox 100% on R/A; iw ED Course: 11:55 Patient arrived in ED. as 12:05 Mindy Linda FNP-C is [facility]. kb 12:05 Óscar Mendez MD is Attending Physician. kb 12:18 Jodie Ward, RN is Primary Nurse. iw 12:19 Triage completed. iw 12:30 Patient has correct armband on for positive identification. iw 13:00 Assist provider with nail repair of avulsion of left great toe Set up for procedure. iw Performed by Mindy CRUZ Patient tolerated well. Patient did not have IV access during this emergency room visit. 13:15 Arm band placed on. 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 Exp: iw 03/27/2020. Lot #: [id number]. } Route: IM; Site: left deltoid; 13:30 Follow up: Response: No adverse reaction iw Outcome: 13:07 Discharge ordered by . kb 13:25 Discharged to home ambulatory, with family. iw 13:25 Condition: good 13:25 Discharge instructions given to patient, family, Instructed on discharge instructions, follow up and referral plans. Demonstrated understanding of instructions, follow-up care, medications, Prescriptions given X 1. 13:30 Patient left the ED. iw Signatures: Mindy Linda FNP-C FNP-Shoshana Arzate as Jodie Ward, RN RN iw
[2019-04-05 13:34] VITALS: BP 112/54; TEMP 98.2; O2SAT 100
== END 2019-04-05 13:30 | disposition home or self-care (01) ==
LOC: ER 11:50
DX: S91.202A Unspecified open wound of left great toe with damage to nail, initial encounter (principal); Z23 Encounter for immunization; Z72.0 Tobacco use; Z85.41 Personal history of malignant neoplasm of cervix uteri; Z88.5 Allergy status to narcotic agent
CPT/HCPCS: 64450; 90471; 90714; 99283

== ENCOUNTER 2019-11-27 12:37 | Emergency (ER) | payer BC, SELFPAY ==
--- OUTSIDE RECORDS SUMMARY | 2019-11-27 12:51 | XMS REPORT ---
:1980 Author Organization [facility] Address [address] [place] [address] [address] [place] [address] Care Team Providers Name Role Phone KYLE VANEGAS Unavailable Unavailable Problems This patient has no known problems. Allergies, Adverse Reactions, Alerts This patient has no known allergies or adverse reactions. Medications This patient has no known medications. Results Test Description Test Time Test Comments Text Results Atomic Results Result Comments TISSUE EXAM 2018-06-16 00:53:00 Surgical Pathology Report Case: [id number] Authorizing Provider: Kyle Vanegas, Collected: 2018 0849 Ordering Location: [facility] PERI[facility]IVE Received: 2018 0905 SERVICES Pathologist: Redd [...] FOR MALIGNANCY Signing Pathologist Direct Phone Line: [phone] signed by Redd Marino MD on 06/16/2018 at 12:53 [id number] X 4, [id number] X [id number] X 2 Procedure is hysterectomy, abdomen Preoperative [...] Comments WHITE BLOOD CELL COUNT (BEAKER) (test txhp=236) 8.8 K/ L 3.5-10.5 RED BLOOD CELL COUNT (BEAKER) (test eqbj=187) 3.61 M/ L 3.93-5.22 HEMOGLOBIN (BEAKER) (test jrou=448) 10.3 GM/DL 11.2-15.7 HEMATOCRIT (BEAKER) (test dlbn=540) 30.8 % 34.1-44.9 MEAN CORPUSCULAR VOLUME (BEAKER) (test dhow=521) 85.3 fL 79.4-94.8 MEAN CORPUSCULAR HEMOGLOBIN (BEAKER) (test ostu=889) 28.5 pg 25.6-32.2 MEAN CORPUSCULAR HEMOGLOBIN CONC (BEAKER) (test mrpm=934) 33.4 GM/DL 32.2- 35.5 RED CELL DISTRIBUTION WIDTH (BEAKER) (test sclt=931) 14.5 % 11.7-14.4 PLATELET COUNT (BEAKER) (test saqr=407) 212 K/CU MM 150-450 MEAN PLATELET VOLUME (BEAKER) (test egvd=440) 10.2 fL 9.4-12.3 NUCLEATED RED BLOOD CELLS (BEAKER) (test gejk=587) 0 /100 WBC 0-0 NEUTROPHILS RELATIVE PERCENT (BEAKER) (test gaiz=292) 75 % LYMPHOCYTES RELATIVE PERCENT (BEAKER) (test ukxp=441) 15 % MONOCYTES RELATIVE PERCENT (BEAKER) (test xojt=525) 9 % EOSINOPHILS RELATIVE PERCENT (BEAKER) (test mnit=134) 1 % BASOPHILS RELATIVE PERCENT (BEAKER) (test tpnb=943) 1 % NEUTROPHILS ABSOLUTE COUNT (BEAKER) (test byje=203) 6.60 K/ L 1.56-6.13 LYMPHOCYTES ABSOLUTE COUNT (BEAKER) (test cvkr=768) 1.30 K/ L 1.18-3.74 MONOCYTES ABSOLUTE COUNT (BEAKER) (test crqz=366) 0.76 K/ L 0.24-0.36 EOSINOPHILS ABSOLUTE COUNT (BEAKER) (test ontf=365) 0.11 K/ L 0.04-0.36 BASOPHILS ABSOLUTE COUNT (BEAKER) (test yjyz=424) 0.04 K/ L 0.01-0.08 IMMATURE GRANULOCYTES-RELATIVE PERCENT (BEAKER) (test 0 % 0-1 oksv=4361) BASIC METABOLIC [id number] 05:09:00 Test Item Value Reference Range Comments SODIUM (BEAKER) (test 134 meq/L 136-145 dnie=921) POTASSIUM (BEAKER) (test 4.3 meq/L 3.5-5.1 qcah=703) CHLORIDE (BEAKER) (test 103 meq/L 98-107 drly=628) CO2 (BEAKER) (test 24 meq/L 22-29 bevo=373) BLOOD UREA NITROGEN 10 mg/dL 7-21 (BEAKER) (test qaao=575) CREATININE (BEAKER) (test 0.73 mg/dL 0.57-1.25 rqrh=062) GLUCOSE RANDOM (BEAKER) 127 mg/dL 70-105 (test xlfr=338) CALCIUM (BEAKER) (test 8.3 mg/dL 8.4-10.2 spkb=571) EGFR (BEAKER) (test 90 mL/min/1.73 sq m ESTIMATED GFR IS NOT lquy=2662) ACCURATE CREATININE CLEARANCE IN PREDICTING GLOMERULAR FILTRATION RATE. ESTIMATED GFR IS NOT APPLICABLE FOR DIALYSIS PATIENTS. CBC W/PLT COUNT & AUTO [id number] 04:57:00 Test Item Value Reference Range Comments WHITE BLOOD CELL COUNT (BEAKER) (test ljfg=534) 13.4 K/ L 3.5-10.5 RED BLOOD CELL COUNT (BEAKER) (test qioh=835) 4.27 M/ L 3.93-5.22 HEMOGLOBIN (BEAKER) (test pkra=964) 11.8 GM/DL 11.2-15.7 HEMATOCRIT (BEAKER) (test cxvi=124) 36.9 % 34.1-44.9 MEAN CORPUSCULAR VOLUME (BEAKER) (test bmkq=898) 86.4 fL 79.4-94.8 MEAN CORPUSCULAR HEMOGLOBIN (BEAKER) (test 27.6 pg 25.6-32.2 cugm=639) MEAN CORPUSCULAR HEMOGLOBIN CONC (BEAKER) (test 32.0 GM/DL 32.2-35.5 ingr=455) RED CELL DISTRIBUTION WIDTH (BEAKER) (test 14.5 % 11.7-14.4 dnwv=317) PLATELET COUNT (BEAKER) (test pwzm=608) 277 K/CU MM 150-450 MEAN PLATELET VOLUME (BEAKER) (test jpmd=573) 10.2 fL 9.4-12.3 NUCLEATED RED BLOOD CELLS (BEAKER) (test 0 /100 WBC 0-0 kykt=332) NEUTROPHILS RELATIVE PERCENT (BEAKER) (test 79 % gugf=611) LYMPHOCYTES RELATIVE PERCENT (BEAKER) (test 13 % sfde=018) MONOCYTES RELATIVE PERCENT (BEAKER) (test 8 % fkne=476) EOSINOPHILS RELATIVE PERCENT (BEAKER) (test 0 % ajik=865) BASOPHILS RELATIVE PERCENT (BEAKER) (test 0 % asyi=150) NEUTROPHILS ABSOLUTE COUNT (BEAKER) (test 10.56 K/ L 1.56-6.13 dzgt=149) LYMPHOCYTES ABSOLUTE COUNT (BEAKER) (test 1.67 K/ L 1.18-3.74 dfso=694) MONOCYTES ABSOLUTE COUNT (BEAKER) (test 1.05 K/ L 0.24-0.36 ggii=022) EOSINOPHILS ABSOLUTE COUNT (BEAKER) (test 0.02 K/ L 0.04-0.36 pdfw=379) BASOPHILS ABSOLUTE COUNT (BEAKER) (test 0.05 K/ L 0.01-0.08 altn=823) IMMATURE GRANULOCYTES-RELATIVE PERCENT (BEAKER) 0 % 0-1 (test jkiq=2095) BASIC METABOLIC [id number] 13:20:00 Test Item Value Reference Range Comments SODIUM (BEAKER) (test 142 meq/L 136-145 uszz=611) POTASSIUM (BEAKER) (test 3.5 meq/L 3.5-5.1 fdqn=041) CHLORIDE (BEAKER) (test 107 meq/L 98-107 pgzy=813) CO2 (BEAKER) (test 31 meq/L 22-29 lttw=870) BLOOD UREA NITROGEN 10 mg/dL 7-21 (BEAKER) (test bdnx=472) CREATININE (BEAKER) (test 0.81 mg/dL 0.57-1.25 iirn=777) GLUCOSE RANDOM (BEAKER) 96 mg/dL 70-105 (test qynn=235) CALCIUM (BEAKER) (test 9.4 mg/dL 8.4-10.2 ljaj=983) EGFR (BEAKER) (test 80 mL/min/1.73 sq m ESTIMATED GFR IS NOT yiab=1852) ACCURATE CREATININE CLEARANCE IN PREDICTING GLOMERULAR FILTRATION RATE. ESTIMATED GFR IS NOT APPLICABLE FOR DIALYSIS PATIENTS. SCREEN, [id number] 13:17:00 Test Item Value Reference Range Comments TEST URINE (BEAKER) (test xdbn=096) Negative CBC W/PLT COUNT & AUTO [id number] 13:06:00 Test Item Value Reference Range Comments WHITE BLOOD CELL COUNT (BEAKER) (test whpz=344) 7.5 K/ L 3.5-10.5 RED BLOOD CELL COUNT (BEAKER) (test ihkk=413) 4.45 M/ L 3.93-5.22 HEMOGLOBIN (BEAKER) (test cctm=749) 12.3 GM/DL 11.2-15.7 HEMATOCRIT (BEAKER) (test xroi=643) 37.5 % 34.1-44.9 MEAN CORPUSCULAR VOLUME (BEAKER) (test mutr=540) 84.3 fL 79.4-94.8 MEAN CORPUSCULAR HEMOGLOBIN (BEAKER) (test 27.6 pg 25.6-32.2 mnmg=406) MEAN CORPUSCULAR HEMOGLOBIN CONC (BEAKER) (test 32.8 GM/DL 32.2-35.5 zvrh=164) RED CELL DISTRIBUTION WIDTH (BEAKER) (test 14.1 % 11.7-14.4 ksex=913) PLATELET COUNT (BEAKER) (test czpg=904) 283 K/CU MM 150-450 MEAN PLATELET VOLUME (BEAKER) (test eozl=554) 10.0 fL 9.4-12.3 NUCLEATED RED BLOOD CELLS (BEAKER) (test 0 /100 WBC 0-0 cgmd=905) NEUTROPHILS RELATIVE PERCENT (BEAKER) (test 61 % lowh=797) LYMPHOCYTES RELATIVE PERCENT (BEAKER) (test 25 % njyp=501) MONOCYTES RELATIVE PERCENT (BEAKER) (test 10 % rcpq=740) EOSINOPHILS RELATIVE PERCENT (BEAKER) (test 4 % gcgi=589) BASOPHILS RELATIVE PERCENT (BEAKER) (test 1 % pjsg=299) NEUTROPHILS ABSOLUTE COUNT (BEAKER) (test 4.56 K/ L 1.56-6.13 hesp=106) LYMPHOCYTES ABSOLUTE COUNT (BEAKER) (test 1.84 K/ L 1.18-3.74 yhuf=714) MONOCYTES ABSOLUTE COUNT (BEAKER) (test 0.72 K/ L 0.24-0.36 iqkx=887) EOSINOPHILS ABSOLUTE COUNT (BEAKER) (test 0.32 K/ L 0.04-0.36 djxj=747) BASOPHILS ABSOLUTE COUNT (BEAKER) (test 0.06 K/ L 0.01-0.08 yxrh=830) IMMATURE GRANULOCYTES-RELATIVE PERCENT (BEAKER) 0 % 0-1 (test wqzt=4419)
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
--- NOTE | 2019-11-27 13:44 | RAD REPORT ---
EXAM DESCRIPTION: RAD - Hand Right 3 View - 11/27/2019 1:16 pm CLINICAL HISTORY: PAIN COMPARISON: No comparisons FINDINGS: Oblique fracture is present through the dorsal side base of the fifth distal phalanx. 1 mi llimeter or less of distraction noted. Fracture does involve the articular surface. The proximal and middle phalanges of the fifth digit appear intact. No other fracture change identifiable. There is no dislocation or periosteal reaction noted. No foreign body identified. IMPRESSION: Oblique fracture with 1 mm or less displacement noted involving the dorsal side base of the right fifth distal phalanx.
[2019-11-27 14:10] VITALS: O2SAT 100
[2019-11-27 14:15] VITALS: BP 103/76; TEMP 97.9
== END 2019-11-27 13:56 | disposition home or self-care (01) ==
LOC: ER 12:37
PROC: 2W3JX1Z Immobilization of Right Finger using Splint (ICD-10-PCS; principal; 2019-11-27)
DX: S62.616A Displaced fracture of proximal phalanx of right little finger, initial encounter for closed fracture (principal); X58.XXXA Exposure to other specified factors, initial encounter; Y93.89 Activity, other specified; Y92.009 Unspecified place in unspecified non-institutional (private) residence as the place of occurrence of the external cause; Z88.5 Allergy status to narcotic agent; Z85.41 Personal history of malignant neoplasm of cervix uteri
CPT/HCPCS: 99283

== ENCOUNTER 2021-10-14 00:36 | Emergency (ER) | payer OTHER, SELFPAY ==
--- OUTSIDE RECORDS SUMMARY | 2021-10-14 00:39 | XMS REPORT | Continuity of Care Document ---
:1980 Author Organization [facility] t Address [address] [place] [address] Dr. Gamble [address] [place] [id number] Care Team Providers Name Role Phone BEATRICE VANEGAS Attending Clinician Unavailable BEATRICE VANEGAS Admitting Clinician Unavailable Problems This patient has no known problems. Allergies, Adverse Reactions, Alerts This patient has no known allergies or adverse reactions. Medications This patient has no known medications. Procedures This patient has no known procedures. Results Test Description Test Time Test Comments Results Result Comments Source TISSUE EXAM 2018-06-16 Surgical Pathology 00:53:00 Report Case: [id number] Authorizing Provider: Kyle Vanegas, Collected: 2018 0849 Ordering Location: [facility] PERI[facility]IVE Received: 2018 0905 SERVICES Pathologist: [...] FOR MALIGNANCY Signing Pathologist Direct Phone Line: [phone] ically signed by Redd Marino MD on 06/16/2018 at 12:53 [id number] X [id number], [id number] X [id number] X 2 Procedure is hysterectomy, abdomen Preoperative [...] 2018-06-12 07:09:00 Test Item Value Reference Range Interpretation Comme nts WHITE BLOOD CELL COUNT (BEAKER) (test code = 775) 8.8 K/ L 3.5- 10.5 RED BLOOD CELL COUNT (BEAKER) (test code = 761) 3.61 M/ L 3.93-5 .22 L HEMOGLOBIN (BEAKER) (test code = 410) 10.3 GM/DL 11.2-15.7 L HEMATOCRIT (BEAKER) (test code = 411) 30.8 % 34.1-44.9 L MEAN CORPUSCULAR VOLUME (BEAKER) (test code = 753) 85.3 fL 79. 4-94.8 MEAN CORPUSCULAR HEMOGLOBIN (BEAKER) (test code = 751) 28.5 pg 25.6-32.2 MEAN CORPUSCULAR HEMOGLOBIN CONC (BEAKER) (test code = 752) 33.4 GM/DL 32.2-35.5 RED CELL DISTRIBUTION WIDTH (BEAKER) (test code = 412) 14.5 % 11.7-14.4 H PLATELET COUNT (BEAKER) (test code = 756) 212 K/CU MM 150-450 MEAN PLATELET VOLUME (BEAKER) (test code = 754) 10.2 fL 9.4-12 .3 NUCLEATED RED BLOOD CELLS (BEAKER) (test code = 413) 0 /100 WBC 0 -0 NEUTROPHILS RELATIVE PERCENT (BEAKER) (test code = 429) 75 % LYMPHOCYTES RELATIVE PERCENT (BEAKER) (test code = 430) 15 % MONOCYTES RELATIVE PERCENT (BEAKER) (test code = 431) 9 % EOSINOPHILS RELATIVE PERCENT (BEAKER) (test code = 432) 1 % BASOPHILS RELATIVE PERCENT (BEAKER) (test code = 437) 1 % NEUTROPHILS ABSOLUTE COUNT (BEAKER) (test code = 670) 6.60 K/ L 1.56-6.13 H LYMPHOCYTES ABSOLUTE COUNT (BEAKER) (test code = 414) 1.30 K/ L 1.18-3.74 MONOCYTES ABSOLUTE COUNT (BEAKER) (test code = 415) 0.76 K/ L 0. 24-0.36 H EOSINOPHILS ABSOLUTE COUNT (BEAKER) (test code = 416) 0.11 K/ L 0.04-0.36 BASOPHILS ABSOLUTE COUNT (BEAKER) (test code = 417) 0.04 K/ L 0. 01-0.08 IMMATURE GRANULOCYTES-RELATIVE PERCENT (BEAKER) (test code 0 % 0-1 = 2801) BASIC METABOLIC [id number] 05:09:00 Test Item Value Reference Range Interpretation Comments SODIUM (BEAKER) 134 meq/L 136-145 L (test code = 381) POTASSIUM (BEAKER) 4.3 meq/L 3.5-5.1 (test code = 379) CHLORIDE (BEAKER) 103 meq/L 98-107 (test code = 382) CO2 (BEAKER) (test 24 meq/L 22-29 code = 355) BLOOD UREA NITROGEN 10 mg/dL 7-21 (BEAKER) (test code = 354) CREATININE (BEAKER) 0.73 mg/dL 0.57-1.25 (test code = 358) GLUCOSE RANDOM 127 mg/dL 70-105 H (BEAKER) (test code = 652) CALCIUM (BEAKER) 8.3 mg/dL 8.4-10.2 L (test code = 697) EGFR (BEAKER) (test 90 mL/min/1.73 ESTIMA RAMON GFR IS code = 1092) sq m NOT ACCURATE CREATININE CLEARANCE IN PREDICTING GLOMERULAR FILTRATION RATE . ESTIMATED GFR I S NOT APPLICABLE FOR DIALYSIS PATIEN TS. CBC W/PLT COUNT & AUTO [id number] 04:57:00 Test Item Value Reference Range Interpretation Comments WHITE BLOOD CELL COUNT (BEAKER) 13.4 K/ L 3.5-10.5 H (test code = 775) RED BLOOD CELL COUNT (BEAKER) 4.27 M/ L 3.93-5.22 (test code = 761) HEMOGLOBIN (BEAKER) (test code = 11.8 GM/DL 11.2-15.7 410) HEMATOCRIT (BEAKER) (test code = 36.9 % 34.1-44.9 411) MEAN CORPUSCULAR VOLUME (BEAKER) 86.4 fL 79.4-94.8 (test code = 753) MEAN CORPUSCULAR HEMOGLOBIN 27.6 pg 25.6-32.2 (BEAKER) (test code = 751) MEAN CORPUSCULAR HEMOGLOBIN CONC 32.0 GM/DL 32.2-35.5 L (BEAKER) (test code = 752) RED CELL DISTRIBUTION WIDTH 14.5 % 11.7-14.4 H (BEAKER) (test code = 412) PLATELET COUNT (BEAKER) (test 277 K/CU MM 150-450 code = 756) MEAN PLATELET VOLUME (BEAKER) 10.2 fL 9.4-12.3 (test code = 754) NUCLEATED RED BLOOD CELLS 0 /100 WBC 0-0 (BEAKER) (test code = 413) NEUTROPHILS RELATIVE PERCENT 79 % (BEAKER) (test code = 429) LYMPHOCYTES RELATIVE PERCENT 13 % (BEAKER) (test code = 430) MONOCYTES RELATIVE PERCENT 8 % (BEAKER) (test code = 431) EOSINOPHILS RELATIVE PERCENT 0 % (BEAKER) (test code = 432) BASOPHILS RELATIVE PERCENT 0 % (BEAKER) (test code = 437) NEUTROPHILS ABSOLUTE COUNT 10.56 K/ L 1.56-6.13 H (BEAKER) (test code = 670) LYMPHOCYTES ABSOLUTE COUNT 1.67 K/ L 1.18-3.74 (BEAKER) (test code = 414) MONOCYTES ABSOLUTE COUNT (BEAKER) 1.05 K/ L 0.24-0.36 H (test code = 415) EOSINOPHILS ABSOLUTE COUNT 0.02 K/ L 0.04-0.36 L (BEAKER) (test code = 416) BASOPHILS ABSOLUTE COUNT (BEAKER) 0.05 K/ L 0.01-0.08 (test code = 417) IMMATURE GRANULOCYTES-RELATIVE 0 % 0-1 PERCENT (BEAKER) (test code = 2801) BASIC METABOLIC [id number] 13:20:00 Test Item Value Reference Range Interpretation Comments SODIUM (BEAKER) 142 meq/L 136-145 (test code = 381) POTASSIUM (BEAKER) 3.5 meq/L 3.5-5.1 (test code = 379) CHLORIDE (BEAKER) 107 meq/L 98-107 (test code = 382) CO2 (BEAKER) (test 31 meq/L 22-29 H code = 355) BLOOD UREA NITROGEN 10 mg/dL 7-21 (BEAKER) (test code = 354) CREATININE (BEAKER) 0.81 mg/dL 0.57-1.25 (test code = 358) GLUCOSE RANDOM 96 mg/dL 70-105 (BEAKER) (test code = 652) CALCIUM (BEAKER) 9.4 mg/dL 8.4-10.2 (test code = 697) EGFR (BEAKER) (test 80 mL/min/1.73 ESTIMA RMAON GFR IS code = 1092) sq m NOT ACCURATE CREATININE CLEARANCE IN PREDICTING GLOMERULAR FILTRATION RATE . ESTIMATED GFR I S NOT APPLICABLE FOR DIALYSIS PATIEN TS. SCREEN, [id number] 13:17:00 Test Item Value Reference Range Interpretation Comments TEST URINE (BEAKER) (test Negative code = 583) CBC W/PLT COUNT & AUTO [id number] 13:06:00 Test Item Value Reference Range Interpretation Comments WHITE BLOOD CELL COUNT (BEAKER) 7.5 K/ L 3.5-10.5 (test code = 775) RED BLOOD CELL COUNT (BEAKER) 4.45 M/ L 3.93-5.22 (test code = 761) HEMOGLOBIN (BEAKER) (test code = 12.3 GM/DL 11.2-15.7 410) HEMATOCRIT (BEAKER) (test code = 37.5 % 34.1-44.9 411) MEAN CORPUSCULAR VOLUME (BEAKER) 84.3 fL 79.4-94.8 (test code = 753) MEAN CORPUSCULAR HEMOGLOBIN 27.6 pg 25.6-32.2 (BEAKER) (test code = 751) MEAN CORPUSCULAR HEMOGLOBIN CONC 32.8 GM/DL 32.2-35.5 (BEAKER) (test code = 752) RED CELL DISTRIBUTION WIDTH 14.1 % 11.7-14.4 (BEAKER) (test code = 412) PLATELET COUNT (BEAKER) (test 283 K/CU MM 150-450 code = 756) MEAN PLATELET VOLUME (BEAKER) 10.0 fL 9.4-12.3 (test code = 754) NUCLEATED RED BLOOD CELLS 0 /100 WBC 0-0 (BEAKER) (test code = 413) NEUTROPHILS RELATIVE PERCENT 61 % (BEAKER) (test code = 429) LYMPHOCYTES RELATIVE PERCENT 25 % (BEAKER) (test code = 430) MONOCYTES RELATIVE PERCENT 10 % (BEAKER) (test code = 431) EOSINOPHILS RELATIVE PERCENT 4 % (BEAKER) (test code = 432) BASOPHILS RELATIVE PERCENT 1 % (BEAKER) (test code = 437) NEUTROPHILS ABSOLUTE COUNT 4.56 K/ L 1.56-6.13 (BEAKER) (test code = 670) LYMPHOCYTES ABSOLUTE COUNT 1.84 K/ L 1.18-3.74 (BEAKER) (test code = 414) MONOCYTES ABSOLUTE COUNT (BEAKER) 0.72 K/ L 0.24-0.36 H (test code = 415) EOSINOPHILS ABSOLUTE COUNT 0.32 K/ L 0.04-0.36 (BEAKER) (test code = 416) BASOPHILS ABSOLUTE COUNT (BEAKER) 0.06 K/ L 0.01-0.08 (test code = 417) IMMATURE GRANULOCYTES-RELATIVE 0 % 0-1 PERCENT (BEAKER) (test code = 2801)
--- NOTE | 2021-10-14 00:53 | EDPHYS ---
Physician Documentation [facility] Name: Corinna Rosario Age: 41 yrs Sex: Female : 1980 Arrival Date: 10/14/2021 Time: 00:39 Bed 18 Private MD: ED Physician Go Cardona HPI: 10/14 00:51 This 41 yrs old Female presents to ER via Unassigned with complaints of Rash. kb 00:51 The patient's rash thought to be caused by an unknown cause. The rash is located on the kb chest. The rash can be described as papular. Onset: The symptoms/episode began/occurred 2 day(s) ago. Associated signs and symptoms: Pertinent positives: itching. Severity of symptoms: At their worst the symptoms were mild in the emergency department the symptoms are unchanged. The patient has not experienced similar symptoms in the past. The patient has not recently seen a physician. Pt reports rash to chest that started 2 days ago and is itchy. No pain. 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 - Social history:: Smoking status: Patient denies any tobacco usage or history of. ROS: 00:51 Constitutional: Negative for fever, chills, and weight loss. kb 00:51 Skin: Positive for rash, of the chest. 00:51 All other systems are negative. Exam: 00:51 Constitutional: This is a well developed, well nourished patient who is awake, alert, kb and in no acute distress. Head/Face: Normocephalic, atraumatic. ENT: Moist Mucous membranes Respiratory: Respirations even and unlabored. No increased work of breathing. Talking in full sentences MS/ Extremity: Pulses equal, no cyanosis. Neurovascular intact. Full, normal range of motion. Neuro: Awake and alert, GCS 15, oriented to person, place, time, and situation. Moves all extremities. Normal gait. Psych: Awake, alert, with orientation to person, place and time. Behavior, mood, and affect are within normal limits. 00:51 Skin: rash a mild rash is noted, consistent with contact dermatitis, on the chest. Vital Signs: 00:49 BP 113 / 82; Pulse 87; Resp 16 S; Pulse Ox 99% on R/A; Weight 68.04 kg (R); Height 5 bb ft. 0 in. (152.40 cm) (R); Pain 0/10; 00:51 BP 105 / 63; Pulse 86; Resp 18; Temp 97.8(O); Pulse Ox 99% on R/A; sm5 00:49 Body Mass Index 29.29 (68.04 kg, 152.40 cm) bb MDM: 00:43 Patient medically screened. kb 00:50 Data reviewed: vital signs, nurses notes. Data interpreted: Pulse oximetry: on room air kb is 100 %. Interpretation: normal. Counseling: I had a detailed discussion with the patient and/or guardian regarding: the historical points, exam findings, and any diagnostic results supporting the discharge/admit diagnosis, the need for outpatient follow up, a family practitioner, to return to the emergency department if symptoms worsen or persist or if there are any questions or concerns that arise at home. Administered Medications: 01:03 Drug: predniSONE 40 mg Route: PO; 5 01:06 Follow up: Response: Medication administered at discharge. [facility] 01:03 Drug: Pepcid (famotidine) 20 mg Route: PO; sm5 01:06 Follow up: Response: Medication administered at discharge. 5 Disposition: 02:34 Co-signature as Attending Physician, Go Cardona MD I agree with the assessment and kdr plan of care. Disposition Summary: 10/14/21 00:52 Discharge Ordered Location: Home kb Condition: Stable kb Diagnosis - Rash and other nonspecific skin eruption kb Followup: kb - With: Emergency Department - When: As needed - Reason: Worsening of condition Followup: kb - With: Private Physician - When: 2 - 3 days - Reason: Recheck today's complaints, Continuance of care, Re-evaluation by your physician Discharge Instructions: - Discharge Summary Sheet kb - Rash, Adult, [id number] kb Forms: - Medication Reconciliation Form kb - Thank You Letter kb - Antibiotic Education kb - Prescription Opioid Use kb Prescriptions: - Pepcid 20 mg Oral Tablet - take 1 tablet by ORAL route every 12 hours for 5 days; 10 tablet; Refills: 0, kb Product Selection Permitted - Prednisone 20 mg Oral Tablet - take 1 tablet by ORAL route once daily for 5 days; 5 tablet; Refills: 0, kb Product Selection Permitted Signatures: Mindy Linda FNP-C FNP-Ckb Rittger, Kevin, MD MD kdr Ballard, Brenda, RN RN bb Rena John RN RN sm5
--- NOTE | 2021-10-14 00:53 | ER ---
Nurse's Notes [facility] Name: Corinna Rosario Age: 41 yrs Sex: Female : 1980 Arrival Date: 10/14/2021 Time: 00:39 Bed 18 Private MD: Diagnosis: Rash and other nonspecific skin eruption Presentation: 10/14 00:49 Chief complaint: Patient states: "I have had a rash x 2 days which is itchy, the rash bb is on my chest and seems to be spreading". Coronavirus screen: At this time, the client does not indicate any symptoms associated with coronavirus-19. Ebola Screen: No symptoms or risks identified at this time. Initial Sepsis Screen: Does the patient meet any 2 criteria? No. Patient's initial sepsis screen is negative. Does the patient have a suspected source of infection? No. Patient's initial sepsis screen is negative. Risk Assessment: Do you want to hurt yourself or someone else? Patient reports no desire to harm self or others. Onset of symptoms was October 12, 2021. 00:49 Method Of Arrival: Ambulatory bb 00:49 Acuity: EBONI 5 bb Triage Assessment: 01:03 General: Appears in no apparent distress. Behavior is cooperative. Pain: Denies pain. sm5 Neuro: No deficits noted. Level of Consciousness is awake, alert, obeys commands, Oriented to person, place, time, situation. Cardiovascular: No deficits noted. Capillary refill < 3 seconds Patient's skin is warm and dry. Respiratory: No deficits noted. Airway is patent Trachea midline Respiratory effort is even, unlabored. Derm: Rash noted that is itchy, red, on chest. 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 - Social history:: Smoking status: Patient denies any tobacco usage or history of. Screenin:04 Abuse screen: Denies threats or abuse. Denies injuries from another. Nutritional sm5 screening: No deficits noted. Tuberculosis screening: No symptoms or risk factors identified. Fall Risk None identified. Vital Signs: 00:49 BP 113 / 82; Pulse 87; Resp 16 S; Pulse Ox 99% on R/A; Weight 68.04 kg (R); Height 5 bb ft. 0 in. (152.40 cm) (R); Pain 0/10; 00:51 BP 105 / 63; Pulse 86; Resp 18; Temp 97.8(O); Pulse Ox 99% on R/A; sm5 00:49 Body Mass Index 29.29 (68.04 kg, 152.40 cm) ED Course: 00:39 Patient arrived in ED. ja2 00:43 Mindy Linda FNP-C [facility]. kb 00:43 Go Cardona MD is Attending Physician. kb 00:50 Rena John, RN is Primary Nurse. sm5 00:51 Triage completed. bb 00:51 Arm band placed on Patient placed in an exam room, on a stretcher, on pulse oximetry. bb 01:04 Patient has correct armband on for positive identification. Placed in gown. Bed in low sm5 position. Call light in reach. 01:05 No provider procedures requiring assistance completed. Patient did not have IV access sm5 during this emergency room visit. Administered Medications: 01:03 Drug: predniSONE 40 mg Route: PO; sm5 01:06 Follow up: Response: Medication administered at discharge. sm5 01:03 Drug: Pepcid (famotidine) 20 mg Route: PO; sm5 01:06 Follow up: Response: Medication administered at discharge. 5 Outcome: 00:52 Discharge ordered by MD. kb 01:05 Discharged to home ambulatory. sm5 01:05 Condition: stable 01:05 Discharge instructions given to patient, Instructed on discharge instructions, follow up and referral plans. medication usage, Demonstrated understanding of instructions, follow-up care, medications, Prescriptions given X 2. 01:06 Patient left the ED. 5 Signatures: Mindy Linda FNP-C FNP-Ckb Ballard, Brenda, RN RN bb Alexander, Jessica ja2 Mazur, Sarah, NORA RN [facility]
[2021-10-14] MEDS ORDERED: predniSONE 20 MG TAB ONE (00:57)
[2021-10-14] MEDS ORDERED: FAMOTIDINE 20 MG TAB ONE (00:57)
[2021-10-14 01:22] VITALS: O2SAT 99
[2021-10-14 01:24] VITALS: BP 105/63; TEMP 97.8
== END 2021-10-14 01:06 | disposition home or self-care (01) ==
LOC: ER 00:36
DX: R21 Rash and other nonspecific skin eruption (principal); Z88.5 Allergy status to narcotic agent
CPT/HCPCS: 99283; J7512